=== PATIENT | female | born 1945 | race Caucasian/White ===

== ENCOUNTER 2019-02-25 21:18 | Observation (INO) ==
[2019-02-25] MEDS ORDERED: 0.9 % Sodium Chloride 1,000 ML IVC ONE (21:27)
[2019-02-25] MEDS ORDERED: Ondansetron 4 MG/2 ML VIAL IVP ONE (21:27)
--- NOTE | 2019-02-25 21:31 | Emergency Department Note ---
Disposition Clinical Impression: Small bowel obstruction Disposition: Still a Patient Condition: Fair Time of Disposition: 22:55 General Adult HPI - General Stated complaint: abominal pain vomiting Time Seen by Provider: 02/25/19 21:27 Source: EMS, other Mode of arrival: EMS Limitations: other (Patient is nonverbal history of congenital MRDD) Nursing Notes Reviewed: Yes Vital Signs Reviewed: Yes - History of Present Illness HPI Narrative: Nonverbal group home patient brought in by EMS for "vomiting up black stuff and abdominal distention. Patient was supposed to have a colonoscopy tomorrow morning for reasons that EMS was unsure of patient cannot provide any history whatsoever stamp collector is not here yet. They said her abdomen was getting distended they tried magnesium citrate indicated to her and she vomited up black stuff IC remnants of on her shirt surgically could be coffee-ground emesis. Patient does not appear to be in any physical distress and offers no other evidence of complaints - Related Data Previous Rx's Medication Instructions Recorded Polyethylene Glycol 3350 [MiraLAX] 17 gm PO BID #60 powd.pack 01/26/18 Polyethylene Glycol 3350 [MiraLAX 1 scoop PO DAILY #510 gm 06/29/18 Powder Bulk 17.9 Oz] Bisacodyl [Dulcolax] 10 mg RC DAILY #14 supp.rect 08/17/18 Peg 3350/Na Sulf,Bicarb,Cl/KCl 4,000 ml PO ONCE #1 soln.recon 08/17/18 [Golytely Solution] Allergies Allergy/AdvReac Type Severity Reaction Status Date / Time [place] AdvReac See Verified 08/17/18 16:32 Comments Limitations: ROS unobtainable due to patients medical condition Past Medical History - Past Medical History Source: unable to obtain Medical history: Reports: hyperlipidemia, hypertension Psychiatric history: Reports: anxiety, depression - Social History Smoking Status: Former smoker Smokeless Tobacco Status: No Alcohol use: Reports: none Drug use: Reports: none Physical Exam - General Limitations: other (She is nonverbal MRDD) General appearance: alert - Head Head exam: atraumatic - Eye Eye exam: Present: normal appearance - ENT ENT exam: normal exam, mucous membranes moist - Neck Neck exam: Present: normal inspection, full ROM - Chest Chest inspection: Present: normal inspection - Respiratory Respiratory exam: Present: normal lung sounds bilaterally - Cardiovascular Cardiovascular exam: Present: regular rate, normal rhythm - Abdominal Exam Abdominal exam: Present: soft, Non-Tender, distention. Absent: guarding, rebound - Extremities Exam Extremities exam: Present: normal inspection - Expanded Lower Extremity Exam Neurovascular/Tendon exam: Present: normal capillary refill Gait: not tested/not observed - Back Exam Back exam: Present: normal inspection - Neurological Exam Neurological exam: Present: alert - Skin Skin exam: Present: warm, dry Course - Reevaluation(s) Reevaluation #1: Nonverbal MRDD patient increasing abdominal distention but appears to be coffee- ground emesis by history and evidence on chart certainly concerned about possi bility of ileus or small bowel obstruction. Patient had abdominal pelvic CT IV fluids IV Zofran screening labs. Disposition pending Time: 21:31 Reevaluation #2: Patient resting comfortably. CBC chemistry panel and LFTs within normal limits her baseline. Awaiting results of urinalysis and abdominal pelvic CT scan. Disposition pending Time: 22:15 Reevaluation #3: And out to the overnight ED attending Dr. TYLER Hernandez, she will follow up results of the abdominal pelvic CT and disposition the patient appropriately. And are located. It appears to be mechanical physical obstruction of stool with air fluid levels waiting for official read the guardians and stamp collector to the room have been so informed. Disposition pending Time: 22:54 Vital Signs Temperature 98.1 F 02/25/19 21:27 Pulse Rate 104 02/25/19 21:27 Respiratory Rate 18 02/25/19 21:27 Blood Pressure 122/74 02/25/19 21:27 O2 Sat by Pulse Oximetry 97 02/25/19 21:27 Temperature 98.1 F 02/25/19 21:27 Pulse Rate 105 02/25/19 22:48 Respiratory Rate 18 02/25/19 22:48 Blood Pressure 103/86 02/25/19 22:48 O2 Sat by Pulse Oximetry 98 02/25/19 22:48 Oxygen Delivery Oxygen Delivery Room Air Medical Decision Making - Lab Data Result diagrams: 02/25/19 21:28 02/25/19 21:28 Lab Results 02/25/19 02/25/19 Range/Units 21:28 21:28 WBC 5.6 (4.3-11.1) K/mcL RBC 3.79 L (3.82-4.97) M/mcL Hgb 10.5 L (11.5-15.4) g/dL Hct 33.0 L (35.3-44.9) % MCV 87.1 (83.0-100.0) fL MCH 27.7 L (28.0-33.3) pg MCHC 31.8 (31.6-35.5) g/dL RDW 14.4 (11.5-14.5) % Plt Count 175 (140-400) K/mcL MPV 10.7 (9.4-12.4) fL Immature Gran % 0.4 (0-4) % Seg Neutrophils % 49.0 % Lymphocytes % 37.6 % Monocytes % 11.9 % Eosinophils % 0.9 % Basophils % 0.2 % Neutrophils # 2.7 (1.6-8.9) K/mcL Lymphocytes # 2.1 (0.6-4.6) K/mcL Monocytes # 0.7 (0.0-1.3) K/mcL Eosinophils # 0.1 (0.0-0.6) K/mcL Basophils # 0.0 (0.0-0.2) K/mcL Sodium 141 (136-145) mEq/L Potassium 3.7 (3.5-5.1) mEq/L Chloride 100 (98-107) mEq/L Carbon Dioxide 34 H (23-29) mEq/L BUN 21 (8-23) mg/dL Creatinine 0.61 (0.60-1.20) mg/dL Est GFR ( Amer) > 60 (> 60) Est GFR (Non-Af Amer) > 60 (> 60) BUN/Creatinine Ratio 34 H (6-26) Glucose 112 H (70-105) mg/dL Calculated Osmolality 296 (280-300) Calcium 9.2 (8.6-10.3) mg/dL Total Bilirubin 0.2 L (0.3-1.0) mg/dL Direct Bilirubin 0.1 (0.0-0.2) mg/dL Indirect Bilirubin 0.1 (0.0-1.2) mg/dL AST 28 (13-39) Units/L ALT 22 (7-52) Units/L Alkaline Phosphatase 88 (34-104) Units/L Serum Total Protein 7.2 (6.4-8.9) g/dL Albumin 3.9 (3.5-5.7) g/dL Globulin 3.3 (2.4-3.5) g/dL Albumin/Globulin Ratio 1.2 (1.1-2.2) Amylase 34 (29-103) Units/L Lipase 42 (11-82) Units/L
[2019-02-25 21:53] LABS: Basophils % 0.2 %; Eosinophils # 0.1 K/mcL (0.0-0.6); Eosinophils % 0.9 %; Hemoglobin 10.5 g/dL (11.5-15.4); Immature Granulocytes % 0.4 % (0-4); Lymphocytes # 2.1 K/mcL (0.6-4.6); Lymphocytes % 37.6 %; Mean Corpuscular HGB Conc 31.8 g/dL (31.6-35.5); Mean Corpuscular Hemoglobin 27.7 pg (28.0-33.3); Mean Corpuscular Volume 87.1 fL (83.0-100.0); Mean Platelet Volume 10.7 fL (9.4-12.4); Monocytes # 0.7 K/mcL (0.0-1.3); Monocytes % 11.9 %; Neutrophils # 2.7 K/mcL (1.6-8.9); Platelet Count 175 K/mcL (140-400); Red Blood Count 3.79 M/mcL (3.82-4.97); Red Cell Distribution Width 14.4 % (11.5-14.5); White Blood Count 5.6 K/mcL (4.3-11.1)
[2019-02-25 22:14] LABS: Alanine Aminotransferase 22 Units/L (7-52); Albumin 3.9 g/dL (3.5-5.7); Albumin/Globulin Ratio 1.2 (1.1-2.2); Alkaline Phosphatase 88 Units/L (34-104); Amylase 34 Units/L (29-103); Aspartate Amino Transferase 28 Units/L (13-39); BUN/Creatinine Ratio 34 (6-26); Bilirubin,Direct 0.1 mg/dL (0.0-0.2); Bilirubin,Indirect 0.1 mg/dL (0.0-1.2); Bilirubin,Total 0.2 mg/dL (0.3-1.0); Blood Urea Nitrogen 21 mg/dL (8-23); Calcium 9.2 mg/dL (8.6-10.3); Carbon Dioxide 34 mEq/L (23-29); Chloride 100 mEq/L (98-107); Globulin 3.3 g/dL (2.4-3.5); Glucose 112 mg/dL (70-105); Lipase 42 Units/L (11-82); Osmolality,Calculated 296 (280-300); Potassium 3.7 mEq/L (3.5-5.1); Sodium 141 mEq/L (136-145); Total Protein 7.2 g/dL (6.4-8.9); eGFR For African Americans > 60 (> 60); eGFR For Non-African Americans > 60 (> 60)
[2019-02-25] MEDS ORDERED: Lidocaine -MPF 2% 2 ML VIAL IH ONE (23:53)
--- NOTE | 2019-02-25 23:57 | Emergency Department Note ---
Disposition Clinical Impression: Small bowel obstruction, Fecal impaction, Obstipation Disposition: Still a Patient Condition: Fair Referrals: Edwardo Fowler MD [Primary Care Provider] - Time of Disposition: 23:56 General Adult HPI - General Chief complaint: ED Abdominal Pain Stated complaint: abominal pain vomiting Time Seen by Provider: 02/25/19 21:27 Source: EMS, other Mode of arrival: EMS Limitations: other (She is nonverbal MRDD) - History of Present Illness Pain Scale: 0 - Related Data Previous Rx's Medication Instructions Recorded Polyethylene Glycol 3350 [MiraLAX] 17 gm PO BID #60 powd.pack 01/26/18 Polyethylene Glycol 3350 [MiraLAX 1 scoop PO DAILY #510 gm 06/29/18 Powder Bulk 17.9 Oz] Bisacodyl [Dulcolax] 10 mg RC DAILY #14 supp.rect 08/17/18 Peg 3350/Na Sulf,Bicarb,Cl/KCl 4,000 ml PO ONCE #1 soln.recon 08/17/18 [Golytely Solution] Allergies Allergy/AdvReac Type Severity Reaction Status Date / Time [place] AdvReac See Verified 08/17/18 16:32 Comments Past Medical History - Past Medical History Medical history: Reports: hyperlipidemia, hypertension Psychiatric history: Reports: anxiety, depression, schizophrenia - Social History Smoking Status: Former smoker Smokeless Tobacco Status: No Alcohol use: Reports: none Drug use: Reports: none Physical Exam - General Limitations: other (She is nonverbal MRDD) General appearance: alert Course Vital Signs Temperature 98.1 F 02/25/19 21:27 Pulse Rate 104 02/25/19 21:27 Respiratory Rate 18 02/25/19 21:27 Blood Pressure 122/74 02/25/19 21:27 O2 Sat by Pulse Oximetry 97 02/25/19 21:27 Temperature 98.1 F 02/25/19 21:27 Pulse Rate 105 02/25/19 22:48 Respiratory Rate 18 02/25/19 22:48 Blood Pressure 103/86 02/25/19 22:48 O2 Sat by Pulse Oximetry 98 02/25/19 22:48 Oxygen Delivery Oxygen Delivery Room Air Medical Decision Making - MDM Narrative Medical decision making narrative: Patient was signed out to me, by Dr. Hoyt, follow-up on CT scan CT scan showe d significant obstipation with massive fecal impaction with greater than 20 cm of impacted stool, with dilated loops of bowel proximal to this consistent with a functional obstruction from obstipation and constipation and fecal impaction. I spoke with surgery Dr. Yocasta Rodriges, who recommended NG tube, and soapsuds enema, admit to medicine with consultation from surgery if medical management does not work. Medicine consulted for admission. - Lab Data Result diagrams: 02/25/19 21:28 02/25/19 21:28 Lab Results 02/25/19 02/25/19 Range/Units 21:28 21:28 WBC 5.6 (4.3-11.1) K/mcL RBC 3.79 L (3.82-4.97) M/mcL Hgb 10.5 L (11.5-15.4) g/dL Hct 33.0 L (35.3-44.9) % MCV 87.1 (83.0-100.0) fL MCH 27.7 L (28.0-33.3) pg MCHC 31.8 (31.6-35.5) g/dL RDW 14.4 (11.5-14.5) % Plt Count 175 (140-400) K/mcL MPV 10.7 (9.4-12.4) fL Immature Gran % 0.4 (0-4) % Seg Neutrophils % 49.0 % Lymphocytes % 37.6 % Monocytes % 11.9 % Eosinophils % 0.9 % Basophils % 0.2 % Neutrophils # 2.7 (1.6-8.9) K/mcL Lymphocytes # 2.1 (0.6-4.6) K/mcL Monocytes # 0.7 (0.0-1.3) K/mcL Eosinophils # 0.1 (0.0-0.6) K/mcL Basophils # 0.0 (0.0-0.2) K/mcL Sodium 141 (136-145) mEq/L Potassium 3.7 (3.5-5.1) mEq/L Chloride 100 (98-107) mEq/L Carbon Dioxide 34 H (23-29) mEq/L BUN 21 (8-23) mg/dL Creatinine 0.61 (0.60-1.20) mg/dL Est GFR ( Amer) > 60 (> 60) Est GFR (Non-Af Amer) > 60 (> 60) BUN/Creatinine Ratio 34 H (6-26) Glucose 112 H (70-105) mg/dL Calculated Osmolality 296 (280-300) Calcium 9.2 (8.6-10.3) mg/dL Total Bilirubin 0.2 L (0.3-1.0) mg/dL Direct Bilirubin 0.1 (0.0-0.2) mg/dL Indirect Bilirubin 0.1 (0.0-1.2) mg/dL AST 28 (13-39) Units/L ALT 22 (7-52) Units/L Alkaline Phosphatase 88 (34-104) Units/L Serum Total Protein 7.2 (6.4-8.9) g/dL Albumin 3.9 (3.5-5.7) g/dL Globulin 3.3 (2.4-3.5) g/dL Albumin/Globulin Ratio 1.2 (1.1-2.2) Amylase 34 (29-103) Units/L Lipase 42 (11-82) Units/L
[2019-02-26] MEDS ORDERED: Milk and Molasses Enema 200 ML RC ONE ×2 (02:29→16:00)
[2019-02-26] MEDS ORDERED: Acetaminophen 325 MG TABLET PO PRN (02:31)
[2019-02-26] MEDS ORDERED: Naloxone 0.4 MG/ML INJ IVP PRN (02:31)
[2019-02-26] MEDS ORDERED: Ondansetron 4 MG/2 ML VIAL IVP PRN (02:31)
[2019-02-26] MEDS ORDERED: 0.9 % Sodium Chloride 1,000 ML IVC SCH (02:45)
--- NOTE | 2019-02-26 02:59 | Internal Med History&Physical ---
Date of Encounter: 02/26/19 Time of Encounter: 01:45 Internal Medicine - H&P: HPI Chief complaint: Constipation/N/V Admitted From: Emergency Dept Plans for Post Hospital Care: Transfer Long Term Facility History of present illness: Ms. Santos is a 73 year old female w/PMH of chronic constipation, HLD, HTN, anemia, anxiety, and depression presents from the ED w/CC of abdominal pain, constipation, nausea, and vomiting since yesterday. Pt. is MRDD and non-verbal. Patient is wheelchair bound. Caregivers are present on admission to give hx. Pts. caregiver states that the pt. has not had a bowel movement since yesterday and describes yesterday's as large and soft. Pt. was on bowel prep for a lower GI and had taken mag citrate which made her abdomen hard and distended. Patient then had 2 episodes of vomiting which caregiver describes as brown and slimy. Unsure if it resembled or smelled of stool. Caregiver states that the pts. constipation has been chronic for years and requires enemas every 2nd or 3rd day in addition to Miralax BID, Colace, and other bowel stimulants. Caregiver reports the pt. does not drink fluids and spits them back out. Pt. is also on several psychiatric medications. Caregiver denies recent illness, fever, chills, headache, unusual bleeding, chest pain, shortness of breath, pre-syncope, or syncope. Past Med Surg Social Fam HX - Past Medical History Source: old records reviewed, other (Caregivers) Medical history: hyperlipidemia, hypertension, other (Anemia, chronic constipation) Psychiatric history: anxiety, depression, schizophrenia - Past Surgical History Additional surgical history: Unknown - Social History Smoking Status: Former smoker Smokeless Tobacco Status: No Alcohol use: none Drug use: none Current living situation: [facility] Activity Level: Wheelchair bound Recent Out of Country Travel Within the Last 8 Weeks: No Exposure or Possible Exposure to Illness During Travel: No - Family History Father Race: Living Status: Age at : 72 Cause of : Prostate cancer Hx Family Cancer: Yes (Prostate) Mother Race: Living Status: Age at : 70 Cause of : CVA Hx Family Cardiac Disorders: Yes (CVA) Hx Family Endocrine Disorder: Yes (Cirrhosis) Hx Family Neurologic Disorders: Yes (CVA) Brother Race: Living Status: Age at : 83 Cause of : Cancer (type unknown) Hx Family Cancer: Yes Internal Medicine - H&P: Meds Polyethylene Glycol 3350 [MiraLAX] 17 gm PO BID #60 powd.pack 01/26/18 [Rx] Polyethylene Glycol 3350 [MiraLAX Powder Bulk 17.9 Oz] 1 scoop PO DAILY #510 gm 06/29/18 [Rx] Bisacodyl [Dulcolax] 10 mg RC DAILY #14 supp.rect 08/17/18 [Rx] Peg 3350/Na Sulf,Bicarb,Cl/KCl [Golytely Solution] 4,000 ml PO ONCE #1 soln.recon 08/17/18 [Rx] Atorvastatin 20 mg PO QAM 02/26/19 [History] Benztropine [Cogentin] 1 mg PO BID 02/26/19 [History] CarBAMazepine [Equetro] 200 mg PO HS 02/26/19 [History] Ferrous Sulfate [Iron] 325 mg PO DAILY 02/26/19 [History] Linaclotide [Linzess] 290 mcg PO DAILY 02/26/19 [History] carBAMazepine [Carbamazepine ER] 400 mg PO BID 02/26/19 [History] clonazePAM [Clonazepam] 1 mg PO TID 02/26/19 [History] Allergy/AdvReac Type Severity Reaction Status Date / Time [place] AdvReac See Verified 08/17/18 16:32 Comments ROS unobtainable: due to mental status (Patient is MRDD and non-verbal) All Systems PM: A 10-system review of systems was performed and is negative for pertinent findings except as documented above in the HPI. - Constitutional Vitals: Temp Pulse Resp BP Pulse Ox 98.1 F 105 18 139/76 98 02/25/19 21:27 02/26/19 01:49 02/25/19 22:48 02/26/19 01:49 02/25/19 22:48 General appearance: Present: A&O X 0, no acute distress Exam: Patient examined at bedside in ED. Pt. is MRDD and is non-verbal. Caregivers present to give hx and information regarding current constipation. Caregivers report 2 episodes of brown emesis yesterday but none since. Describe emesis as brown and slimy. Last BM yesterday was large and soft. Chronic hx of cons tipation. Caregiver denies any other symptoms or problems at this time. VS: 98.1F temp, HR 105, RR 18, BP 139/76, SpO2 98% on RA. - Head Head exam: Present: atraumatic, normocephalic - Eye Eye exam: Present: PERRL, conjuntiva pink, sclera anicteric Pupils: Present: PERRL - ENT ENT exam: Present: normal exam - Neck Neck exam general surgery: Present: supple, trachea midline. Absent: lymphadenopathy - Respiratory Respiratory exam: Present: CTAB. Absent: accessory muscle use, rales, rhonchi, wheezes - Cardiovascular Cardiovascular exam: Present: RRR, +S1, +S2. Absent: diastolic murmur, gallop, rubs, systolic murmur - GI/Abdominal GI/Abdominal exam: Present: distended, normal bowel sounds, tenderness - Rectal Rectal exam: Present: deferred - Additional comments: exam deferred. - Extremities Exam Extremities exam: Present: warm, radial pulses palpable and symmetrical. Absent: calf tenderness, cyanotic, pedal edema - Back Exam Back exam: Present: normal inspection - Neurological Exam Neurological exam: Present: altered Additional comments: Patient is MRDD and non-verbal - Psychiatric Psychiatric exam: Present: flat affect - Skin Skin exam: Present: dry, intact Internal Med - H&P Results - Labs CBC & Chem 7: 02/25/19 21:28 02/25/19 21:28 Labs: Short CBC 02/25/19 Range/Units 21:28 WBC 5.6 (4.3-11.1) K/mcL Hgb 10.5 L (11.5-15.4) g/dL Hct 33.0 L (35.3-44.9) % Plt Count 175 (140-400) K/mcL Neutrophils # 2.7 (1.6-8.9) K/mcL BMP 02/25/19 21:28 Sodium 141 Potassium 3.7 Chloride 100 Carbon Dioxide 34 H BUN 21 Creatinine 0.61 Glucose 112 H Calcium 9.2 Liver Function 02/25/19 Range/Units 21:28 Total Bilirubin 0.2 L (0.3-1.0) mg/dL Direct Bilirubin 0.1 (0.0-0.2) mg/dL AST 28 (13-39) Units/L ALT 22 (7-52) Units/L Alkaline Phosphatase 88 (34-104) Units/L Albumin 3.9 (3.5-5.7) g/dL - Impressions ITS Impressions Abdomen/Pelvis CT 02/25/19 21:28 IMPRESSION: 1. Rectosigmoid colon is distended with large amount of stool with impacted appearance. Colon proximal to this is distended with fluid and gas. 2. Fluid in the small bowel but no small bowel obstruction. 1. Moderate hiatal hernia with paraesophageal component. 4. Other incidental findings as above including a right middle lobe nodule of 3 mm. 2. Case discussed with the referring clinician at 2341 hours via telephone. RECOMMENDATIONS: Fleischner Society guidelines for follow-up and management of incidentally detected pulmonary nodules: Single Solid Nodule: Nodule size less than 6 mm In a low-risk patient, no routine follow-up. In a high-risk patient, optional CT at 12 months. - Low risk patients include individuals with minimal or absent history of smoking and other known risk factors. - High risk patients include individuals with a history or smoking or known risk factors. Radiology 2017 http://pubs.rsna.org/doi/full/10.1148/radiol.3881862880 D/ / Marcie Lai MD / Marcie Lai MD Interpreting Provider: Marcie Lai MD - Diagnostic Studies CT scan - abdomen Additional comments: Impressions Abdomen/Pelvis CT 02/25/19 21:28 IMPRESSION: 1. Rectosigmoid colon is distended with large amount of stool with impacted appearance. Colon proximal to this is distended with fluid and gas. 2. Fluid in the small bowel but no small bowel obstruction. 1. Moderate hiatal hernia with paraesophageal component. 4. Other incidental findings as above including a right middle lobe nodule of 3 mm. 2. Case discussed with the referring clinician at 2341 hours via telephone. RECOMMENDATIONS: Fleischner Society guidelines for follow-up and management of incidentally detected pulmonary nodules: Single Solid Nodule: Nodule size less than 6 mm In a low-risk patient, no routine follow-up. In a high-risk patient, optional CT at 12 months. - Low risk patients include individuals with minimal or absent history of smoking and other known risk factors. - High risk patients include individuals with a history or smoking or known risk factors. Radiology 2017 http://pubs.rsna.org/doi/full/10.1148/radiol.3091784492 D/ / Marcie Lai MD / Marcie Lai MD Interpreting Provider: Marcie Lai MD - Assessment and Plan (1) Fecal impaction Current Visit: Yes Status: Acute Assessment and plan: Acute on chronic constipation w/current fecal impaction. CT of the abdomen/pelvis shows rectosigmoid colon is distended with large amount of stool with impacted appearance. Colon proximal to this is distended with fluid and gas. Fluid in the small bowel but no small bowel obstruction. Moderate hiatal hernia with paraesophageal component. Other incidental findings include a right middle lobe nodule of 3 mm. Surgery consulted in ED w/recommendation for soap suds enema. Current fecal impaction measures approximately 20 cm. Pt. received enema in ED and had some liquid stool. Milk and molasses enema ordered. No cur rent N/V and caregivers wish to avoid NG tube d/t pts. intolerance to trauma. Bowel sounds present on exam and periods of flatus. NPO. 0.9 IV fluids. Nutrition consult for dietary recommendations for caregivers. Will continue PO bowel stimulants once fecal impaction is resolving/resolved. Avoid opioids and iron supplements for the present. Pt. is moderate risk for further morbidity and complications d/t current large fecal impaction, hx of chronic constipation d/t poor dietary and fluid intake, hx of chronic anemia, and risk factors. Observation. (2) Nausea & vomiting Current Visit: Yes Status: Acute Assessment and plan: Acute nausea and vomiting episodes x2. Caregiver reports emesis as brown and slimy. Denies any blood in stool or emesis. IVP Zofran 4 mg every 8 hour when necessary for nausea and vomiting. Caregiver reports no further incidence of N/V and wishes to avoid NG tube at this time d/t trauma to the pt. Will re-order if appropriate or necessary. NPO for now. Strict I&O. Qualifiers: Vomiting type: cyclical vomiting Vomiting Intractability: non-intractable Qualified Code(s): G43.A0 - Cyclical vomiting, not intractable (3) Chronic constipation Current Visit: Yes Status: Chronic Assessment and plan: Hx of chronic constipation d/t poor daily fluid intake, poor dietary intake, and medications. Pt. takes bisacodyl and MiraLAX daily. Pt. also requires enemas every 2nd or 3rd day. Nutrition consult ordered to provide dietary education and advice to caregivers. Strict I&O. Will resume PO bowel regimen once fecal impaction is resolved/resolving. (4) Anemia Current Visit: Yes Status: Chronic Assessment and plan: Hx of chronic iron deficiency anemia r/t poor intake. Iron panel in a.m. labs. Hold pts. PO ferrous sulfate until constipation/fecal impaction is resolved. Monitor H/H in f/u labs. Qualifiers: Anemia type: iron deficiency Iron deficiency anemia type: inadequate dietary iron intake Qualified Code(s): D50.8 - Other iron deficiency anemias (5) HLD (hyperlipidemia) Current Visit: Yes Status: Chronic Assessment and plan: Hx of chronic HLD. Lipid panel in a.m. labs. Continue pts. home statin when me dications are reconciled. Qualifiers: Hyperlipidemia type: pure hypercholesterolemia Qualified Code(s): E78.00 - Pure hypercholesterolemia, unspecified; E78.0 - Pure hypercholesterolemia (6) HTN (hypertension) Current Visit: Yes Status: Chronic Assessment and plan: Hx of chronic HTN. Monitor pt. and VS. Continue pts. home HTN medication when reconciled. IVP hydralazine 10 mg Q6HR PRN w/parameters ordered for now. Qualifiers: Hypertension type: essential hypertension Qualified Code(s): I10 - Essential (primary) hypertension (7) Anxiety and depression Current Visit: Yes Status: Chronic Assessment and plan: Hx of chronic anxiety, depression, and schizophrenia. Continue pts. home psy chiatric medications. (8) DVT prophylaxis Current Visit: Yes Status: Acute Assessment and plan: Bilateral SCDs on LEs for DVT prophylaxis d/t drop in Hgb and report of possible coffee ground emesis. - Time Spent With Patient Total time spent is greater than 50% in coordination of care (as documented) at patient's floor/unit and/or counseling patient: Greater than 35 minutes
[2019-02-26 04:38] LABS: Hematocrit 34.6 % (35.3-44.9); Hemoglobin 10.8 g/dL (11.5-15.4); Mean Corpuscular HGB Conc 31.2 g/dL (31.6-35.5); Mean Corpuscular Hemoglobin 26.8 pg (28.0-33.3); Mean Corpuscular Volume 85.9 fL (83.0-100.0); Mean Platelet Volume 10.3 fL (9.4-12.4); Platelet Count 183 K/mcL (140-400); Red Blood Count 4.03 M/mcL (3.82-4.97); Red Cell Distribution Width 14.2 % (11.5-14.5); White Blood Count 7.2 K/mcL (4.3-11.1)
[2019-02-26 04:56] LABS: BUN/Creatinine Ratio 38 (6-26); Blood Urea Nitrogen 21 mg/dL (8-23); Calcium 9.2 mg/dL (8.6-10.3); Carbon Dioxide 32 mEq/L (23-29); Chloride 104 mEq/L (98-107); Chol/HDL Ratio 2.7 (0-4.9); Cholesterol 174 mg/dL (< 200); Glucose 127 mg/dL (70-105); HDL Cholesterol 65 mg/dL (40-59); LDL Cholesterol,Calculated 89 mg/dL (0-99); Magnesium 2.3 mg/dL (1.6-2.6); Osmolality,Calculated 299 (280-300); Potassium 3.5 mEq/L (3.5-5.1); Sodium 142 mEq/L (136-145); Triglycerides 101 mg/dL (< 150); eGFR For African Americans > 60 (> 60); eGFR For Non-African Americans > 60 (> 60)
[2019-02-26 04:57] LABS: % Iron Saturation 20 % (15-50); Iron 53 mcg/dL (50-170); Transferrin 188 mg/dL (203-362)
--- NOTE | 2019-02-26 08:51 | Event Note ---
Date of Encounter: 02/26/19 Time of Encounter: 08:51 Patient was seen and examined by hospitalist services earlier this morning . Guardian and caregiver at bedside-nursing reports the patient did have some liquid stool after MON enema. We will repeat soapsud as well as Dulcolax suppository and monitor. Patient does not have a NG tube placed at this time. Guardian and caregiver are requesting not to place NG. Explained the importance of NG placement including prevention of possible aspiration decompression of stomach and if necessary administration of medications. Guardian and caregiver declining NG placement this time.
[2019-02-26] MEDS ORDERED: Dextrose Gel 15 GM/37.5 ML TUBE PO PRN ×2 (11:57)
[2019-02-26] MEDS ORDERED: *HR* Dextrose 50 % in Water (Syg) 50 ML SYRINGE IVP PRN (11:57)
[2019-02-26] MEDS ORDERED: D5% in Water 1,000 ML IVC PRN (11:57)
[2019-02-26] MEDS: D5% in 0.9% NACL 1,000 ML IVC SCH (12:46)
[2019-02-26] MEDS: Bisacodyl 10 MG RECTAL SUPPOSITORY RC SCH (12:48)
[2019-02-26] MEDS: Milk and Molasses Enema 200 ML RC SCH ×2 (15:50→21:33)
[2019-02-26] MEDS: *HR* LORazepam 2 MG/ML VIAL IVP SCH (18:36)
[2019-02-26 23:46] LABS: Bilirubin,Urine Negative (Negative); Blood,Urine Trace (Negative); Clarity,Urine Cloudy (Clear); Color,Urine Yellow (Yellow); Glucose,Urine (UA) Normal (Normal); Ketones,Urine Negative (Negative); Leukocyte Esterase,Urine Large (Negative); Nitrite,Urine Negative (Negative); PH,Urine 6.5 pH Units (5.0-8.0); Protein,Urine Trace mg/dL (Neg-Trace); Specific Gravity,Urine 1.014 (1.010-1.025); Urobilinogen,Urine Normal (Normal)
[2019-02-26 23:48] LABS: Bacteria,Urine Many per hpf (None-Few); Hyaline Casts,Urine None Seen per lpf (None-Few); Squamous Epithelial Cell,Urine Moderate per lpf (None-Few); WBC,Urine TNTC per hpf (0-3)
[2019-02-27] MEDS: D5% in 0.9% NACL 1,000 ML IVC SCH (02:25)
[2019-02-27 05:21] LABS: Hematocrit 28.9 % (35.3-44.9); Mean Corpuscular HGB Conc 31.5 g/dL (31.6-35.5); Mean Corpuscular Hemoglobin 27.3 pg (28.0-33.3); Mean Corpuscular Volume 86.8 fL (83.0-100.0); Mean Platelet Volume 10.4 fL (9.4-12.4); Platelet Count 164 K/mcL (140-400); Red Blood Count 3.33 M/mcL (3.82-4.97); Red Cell Distribution Width 14.1 % (11.5-14.5); White Blood Count 4.9 K/mcL (4.3-11.1)
[2019-02-27 05:25] LABS: Hemoglobin 9.1 g/dL (11.5-15.4)
[2019-02-27 05:42] LABS: BUN/Creatinine Ratio 29 (6-26); Blood Urea Nitrogen 12 mg/dL (8-23); Calcium 8.5 mg/dL (8.6-10.3); Carbon Dioxide 27 mEq/L (23-29); Chloride 111 mEq/L (98-107); Glucose 128 mg/dL (70-105); Osmolality,Calculated 289 (280-300); Potassium 3.3 mEq/L (3.5-5.1); Sodium 139 mEq/L (136-145); eGFR For African Americans > 60 (> 60); eGFR For Non-African Americans > 60 (> 60)
[2019-02-27] MEDS: *HR* LORazepam 2 MG/ML VIAL IVP SCH (05:55)
[2019-02-27] MEDS ORDERED: Potassium Chloride 40 MEQ, Lidocaine 1% 2 ML in D5% in Water 500 ML IVPB ONE (07:57)
[2019-02-27] MEDS: Bisacodyl 10 MG RECTAL SUPPOSITORY RC SCH (08:21)
[2019-02-27] MEDS: Milk and Molasses Enema 200 ML RC SCH (10:05)
--- NOTE | 2019-02-27 10:49 | Discharge Summary ---
- NOTES TO OUTPATIENT PROVIDER Notes to Outpatient Provider: Follow-up at [facility] for outpatient colonoscopy on 03/04. Enema every other day. Orders not resulted at time of discharge: Pending orders 02/26/19 23:28 Culture,Urine [RM] Stat 02/28/19 04:00 Basic Metabolic Panel AM 0400 Complete Blood Count w/o Diff [HEME] AM 0400 Date of Encounter: 02/27/19 Time of Encounter: 08:30 - Discharge Diagnosis (1) Fecal impaction Priority: Primary Status: Acute (2) Chronic constipation Priority: Secondary Status: Chronic (3) Anemia Priority: Secondary Status: Chronic Qualifiers: Anemia type: iron deficiency Iron deficiency anemia type: inadequate dietary iron intake Qualified Code(s): D50.8 - Other iron deficiency anemias (4) HLD (hyperlipidemia) Priority: Secondary Status: Chronic Qualifiers: Hyperlipidemia type: pure hypercholesterolemia Qualified Code(s): E78.00 - Pure hypercholesterolemia, unspecified; E78.0 - Pure hypercholesterolemia (5) HTN (hypertension) Priority: Secondary Status: Chronic Qualifiers: Hypertension type: essential hypertension Qualified Code(s): I10 - Essen tial (primary) hypertension (6) DVT prophylaxis Priority: Secondary Status: Acute (7) Anxiety and depression Priority: Secondary Status: Chronic (8) Nausea & vomiting Priority: Secondary Status: Acute Qualifiers: Vomiting type: cyclical vomiting Vomiting Intractability: non-intractable Qualified Code(s): G43.A0 - Cyclical vomiting, not intractable Hospital course: Ms. Santos is a 73 year old female with MRDD with WC bound status, HTN, anxiety/depression, chronic constipation, who was admitted for fecal impaction. Required multiple rounds of Dulcolax suppository as well as MOM enema with good stool output. Patient's caregiver reported that she gets an enema every 3 days which may not have been adequate. Pt will be sent home with home health to assist with enema every 1-2 days and daily Dulcolax suppository. Pt already has an existing appointment for outpatient colonoscopy at [facility] on 03/04. Discharge discussed with: patient, nurse - Time Spent with Patient Total time spent providing and/or coordinating discharge services: 28 mins - Discharge Medications Prescriptions: New Bisacodyl [Dulcolax] 10 mg RC DAILY #30 supp.rect Milk and Molasses Enema 200 ml RC Q1-2D #3000 mls Continued Atorvastatin Calcium [Lipitor] 20 mg PO QAM Benztropine [Cogentin] 1 mg PO BID Ferrous Sulfate [Iron] 325 mg PO DAILY Linaclotide [Linzess] 290 mcg PO DAILY carBAMazepine [Carbamazepine ER] 400 mg PO BID clonazePAM [Clonazepam] 1 mg PO TID Mirtazapine [Remeron] 15 mg PO HS Ermias/Poly/Kylie OINT [Triple Antibiotic Ointment] 1 appl TP TID PRN PRN Reason: Wound Healing MOM Conc [MILK OF MAGNESIA conc] 30 ml PO PRN PRN PRN Reason: Constipation Quetiapine Fumarate [Seroquel] 300 mg PO BID Acetaminophen [Extra Strength Non-Aspirin] 500 mg PO Q4H PRN PRN Reason: PAIN/FEVER/HEADACHE Artificial Tears SOLN [Akwa Tears] 1 drop BOTH EYES PRN PRN PRN Reason: Dry Eyes Bismuth Subsalicylate [PEPTO-BISMOL (262mg/15mL) Susp] 262 mg PO Q4H PRN PRN Reason: Indigestion Calcium Carbonate/Vitamin D3 [Oyster Shell Calcium-Vit D Tab] 1 tab PO BID carBAMazepine [Tegretol Xr] 200 mg PO QPM Guaifenesin [Cough Syrup] 200 mg PO Q4H PRN PRN Reason: Cough Multivitamin [Daily Multiple Vitamin] 1 tab PO DAILY Psyllium Husk [Tiffany-Mucil] 15 gm PO PRN PRN PRN Reason: Constipation Home Medications: Atorvastatin Calcium [Lipitor] 20 mg PO QAM 02/26/19 [History] Benztropine [Cogentin] 1 mg PO BID 02/26/19 [History] Ferrous Sulfate [Iron] 325 mg PO DAILY 02/26/19 [History] Linaclotide [Linzess] 290 mcg PO DAILY 02/26/19 [History] MOM Conc [MILK OF MAGNESIA conc] 30 ml PO PRN PRN 02/26/19 [History] Mirtazapine [Remeron] 15 mg PO HS 02/26/19 [History] Ermias/Poly/Kylie OINT [Triple Antibiotic Ointment] 1 appl TP TID PRN 02/26/19 [History] Quetiapine Fumarate [Seroquel] 300 mg PO BID 02/26/19 [History] carBAMazepine [Carbamazepine ER] 400 mg PO BID 02/26/19 [History] clonazePAM [Clonazepam] 1 mg PO TID 02/26/19 [History] Acetaminophen [Extra Strength Non-Aspirin] 500 mg PO Q4H PRN 02/27/19 [History] Artificial Tears SOLN [Akwa Tears] 1 drop BOTH EYES PRN PRN 02/27/19 [History] Bisacodyl [Dulcolax] 10 mg RC DAILY #30 supp.rect 02/27/19 [Rx] Bismuth Subsalicylate [PEPTO-BISMOL (262mg/15mL) Susp] 262 mg PO Q4H PRN 02/27/19 [History] Calcium Carbonate/Vitamin D3 [Oyster Shell Calcium-Vit D Tab] 1 tab PO BID 02/27/19 [History] Guaifenesin [Cough Syrup] 200 mg PO Q4H PRN 02/27/19 [History] Milk and Molasses Enema 200 ml RC Q1-2D #3000 mls 02/27/19 [Rx] Multivitamin [Daily Multiple Vitamin] 1 tab PO DAILY 02/27/19 [History] Psyllium Husk [Tiffany-Mucil] 15 gm PO PRN PRN 02/27/19 [History] carBAMazepine [Tegretol Xr] 200 mg PO QPM 02/27/19 [History] Allergies/Adverse Reactions: Allergy/AdvReac Type Severity Reaction Status Date / Time [place] AdvReac See Verified 02/27/19 08:44 Comments Date of admission: 02/26/19 02:21 Primary care physician: Edwardo Fowler MD Consults: 02/26/19 02:29 Consult to Nutrition [CONS] Routine Comment: Consulting Provider: NUTRITION Reason for Dietary Consult: Diet Education Other:: Patient has hx of chronic constipation. Caregivers need educated on diet 02/26/19 02:34 Consult to Founder [CONS] Routine Reason for SW Consult: Please assess patient for possible home needs for post-discharge planning. - Constitutional Vitals: Temp Pulse Resp BP Pulse Ox 98.1 F 100 15 155/82 97 02/27/19 09:52 02/27/19 09:52 02/27/19 09:52 02/27/19 09:52 02/27/19 09:52 General appearance: Present: A&O X 0, no acute distress Exam: General: Alert, non-verbal. Tardive dyskinesia noted Cardiovascular:Normal S1 & S2, No JVD. Pulse regular. Lungs: clear to auscultation, no wheezes/rales Abdomen:Soft, non-tender, not distended Neurological: does not follow commands reliably for neuro exam but moving all 4 limbs spontaneously - Patient Status Disposition: Home Health Service Condition: Fair Overall status at discharge: patient is progressing back to baseline - Discharge Instructions Instructions: Anxiety (DC), Chronic Hypertension (DC) Follow Up With: Edwardo Fowler MD [Primary Care Provider] - Forms: ED Satisfaction Letter, Work/School Release Additional Instructions: Follow up at [facility] for outpatient colonoscopy on 03/04. - Diet and Activity Activity: as per physical therapy Diet: advance to your usual diet
--- NOTE | 2019-02-27 10:56 | Physician Discharge Referral ---
Home Health/Hosp Referral Info Transfer to: Home Health Provider in Charge Post Discharge: PCP - Diagnosis (1) Fecal impaction Priority: Primary Status: Acute (2) Chronic constipation Priority: Secondary Status: Chronic (3) Anemia Priority: Secondary Status: Chronic (4) HLD (hyperlipidemia) Priority: Secondary Status: Chronic (5) HTN (hypertension) Priority: Secondary Status: Chronic (6) DVT prophylaxis Priority: Secondary Status: Acute (7) Anxiety and depression Priority: Secondary Status: Chronic (8) Nausea & vomiting Priority: Secondary Status: Acute - Respiratory Orders Smoking Cessation: Smoking cessation has been advised. For more information, call the [place] Tobacco Quit Line at 7-553-FAIH-NOW. - Services Needed Following services are medically necessary services: Nursing (Enema every 1-2 days. Daily dulcolax suppository) - Transfer Medications Prescriptions: Bisacodyl [Dulcolax] 10 mg RC DAILY #30 supp.rect Milk and Molasses Enema 200 ml RC Q1-2D #3000 mls Home Medications: Atorvastatin Calcium [Lipitor] 20 mg PO QAM 02/26/19 [History] Benztropine [Cogentin] 1 mg PO BID 02/26/19 [History] Ferrous Sulfate [Iron] 325 mg PO DAILY 02/26/19 [History] Linaclotide [Linzess] 290 mcg PO DAILY 02/26/19 [History] MOM Conc [MILK OF MAGNESIA conc] 30 ml PO PRN PRN 02/26/19 [History] Mirtazapine [Remeron] 15 mg PO HS 02/26/19 [History] Ermias/Poly/Kylie OINT [Triple Antibiotic Ointment] 1 appl TP TID PRN 02/26/19 [History] Quetiapine Fumarate [Seroquel] 300 mg PO BID 02/26/19 [History] carBAMazepine [Carbamazepine ER] 400 mg PO BID 02/26/19 [History] clonazePAM [Clonazepam] 1 mg PO TID 02/26/19 [History] Acetaminophen [Extra Strength Non-Aspirin] 500 mg PO Q4H PRN 02/27/19 [History] Artificial Tears SOLN [Akwa Tears] 1 drop BOTH EYES PRN PRN 02/27/19 [History] Bisacodyl [Dulcolax] 10 mg RC DAILY #30 supp.rect 02/27/19 [Rx] Bismuth Subsalicylate [PEPTO-BISMOL (262mg/15mL) Susp] 262 mg PO Q4H PRN 02/27/19 [History] Calcium Carbonate/Vitamin D3 [Oyster Shell Calcium-Vit D Tab] 1 tab PO BID 02/27/19 [History] Guaifenesin [Cough Syrup] 200 mg PO Q4H PRN 02/27/19 [History] Milk and Molasses Enema 200 ml RC Q1-2D #3000 mls 02/27/19 [Rx] Multivitamin [Daily Multiple Vitamin] 1 tab PO DAILY 02/27/19 [History] Psyllium Husk [Tiffany-Mucil] 15 gm PO PRN PRN 02/27/19 [History] carBAMazepine [Tegretol Xr] 200 mg PO QPM 02/27/19 [History] Allergies/Adverse Reactions: Allergy/AdvReac Type Severity Reaction Status Date / Time [place] AdvReac See Verified 02/27/19 08:44 Comments Certification: Further, I certify that my clinical findings support that this patient is homebound (i.e. absences from home require considerable and taxing effort and are for medical reasons or uatsdin services or infrequently or short duration when for other reasons) because: Homebound Reason: Patient requires assistance of a person or device to safely leave home Attestation: My signature below is to certify that this patient is under my care and that I, or nurse practitioner, or a physician's speech and language assistant working with me, has a [id number] encounter with this patient.
[2019-02-27] MEDS ORDERED: GuaiFENesin Liq 200 MG/10 ML UDC PO PRN (12:53)
[2019-02-27] MEDS ORDERED: Psyllium 1 PACKET POWD.PACK PO PRN (12:53)
[2019-02-27] MEDS ORDERED: Artificial Tears SOLN 15 ML BOTTLE BOTH EYES PRN (12:53)
[2019-02-27] MEDS ORDERED: Bismuth Subsalicylate 120 ML ORAL SUSPENSION PO PRN (12:53)
[2019-02-27] MEDS ORDERED: CarBAMazepine XR (12 hr) 100 MG TAB PO SCH ×2 (13:15→18:00)
[2019-02-27] MEDS ORDERED: *HR* Labetalol 20 MG/4 ML SYRINGE IVP ONE (14:23)
[2019-02-27] MEDS ORDERED: clonazePAM 1 MG TABLET PO SCH (15:00)
[2019-02-27 15:32] VITALS: BP 168/75
[2019-02-27] MEDS ORDERED: Mirtazapine 15 MG TABLET PO SCH (21:00)
--- NOTE | 2019-02-28 11:43 | Electrocardiograph Report ---
[address] [address] Test Date: 2019-02-25 Pat Name: Pia Santos Department: [id number] Room: 3A16 Gender: F Assistant Distribution Manager: : [id number] Requested By: Lorenzo Harvey Order Number: [id number] Reading MD: Jitendra Guadarrama Measurements Intervals [place] Rate: 101 P: 72 [place]: 146 QRS: 19 QRSD: 78 T: 102 QT: 402 QTc: 522 Interpretive Statements Sinus tachycardia Low voltage, extremity leads Electronically Signed On 02-28-2019 11:41:43 EDT by Jitendra Guadarrama
== END 2019-02-27 15:46 | disposition home health service (06) ==
LOC: 3ANU 21:18 → EMEROOARM 21:18 → SUATTDRO 02-26 02:21 → 3ANU 02-26 02:40
PROVIDERS: ADMIT Family Medicine; ATTEND Internal Medicine

== ENCOUNTER 2019-02-28 07:17 | Inpatient (IN) ==
[2019-02-28] MEDS ORDERED: 0.9 % Sodium Chloride 500 ML IVC ONE ×2 (07:55→23:46)
[2019-02-28] MEDS ORDERED: *HR* FentaNYL (PF) 100 MCG/2 ML VIAL IVP ONE (07:55)
[2019-02-28] MEDS ORDERED: Acetaminophen 650 MG RECTAL SUPP RC ONE (08:16)
--- NOTE | 2019-02-28 08:20 | Emergency Department Note ---
Disposition Clinical Impression: Acute cystitis Qualifiers: Hematuria presence: without hematuria Qualified Code(s): N30.00 - Acute cystitis without hematuria Sepsis Qualifiers: Sepsis type: sepsis due to unspecified organism Qualified Code(s): A41.9 - Sepsis, unspecified organism Disposition: Admitted As Inpatient Condition: Fair Time of Disposition: 10:43 General Adult HPI - General Chief complaint: ED Nausea/Vomiting/Diarrhea Stated complaint: Fever V/D Time Seen by Provider: 02/28/19 07:32 Source: patient Mode of arrival: ambulatory Limitations: no limitations Nursing Notes Reviewed: Yes Vital Signs Reviewed: Yes - History of Present Illness HPI Narrative: 73-year-old female history of MRDD difficult to get further history from patient but does live in a nursing facility does take care of her present to the emergency department with diarrhea and vomiting as well as a fever. They said the fever was 102.0. She actually was discharged from the hospital yesterday after being admitted for a bowel obstruction secondary to fecal impaction. It was unknown if patient actually did have a large bowel movement but underwent many enemas. When reviewing her chart does look that she did have urinary tract infection but may have been missed as she never did receive any antibiotics. Patient did go home again staff and patient do not know she had a large bowel movements difficult to find on charting. They said that since being home she is only had watery stools there is never been a solid stool. Last was at 4:00. The at late last night she did have a fever of 102 actually did receive Tylenol. Dose being at 2 AM. They said they feel her abdomen is still distended and harder than normal. Otherwise there are no other complaints at this time. Patient is full code according to senior care staff. Pain Scale: 0 - Related Data Home Medications Medication Instructions Recorded Confirmed Atorvastatin Calcium [Lipitor] 20 mg PO QAM 02/26/19 02/28/19 Benztropine [Cogentin] 1 mg PO BID 02/26/19 02/28/19 Ferrous Sulfate [Iron] 325 mg PO DAILY 02/26/19 02/28/19 Linaclotide [Linzess] 290 mcg PO DAILY 02/26/19 02/28/19 MOM Conc [MILK OF MAGNESIA conc] 30 ml PO PRN PRN 02/26/19 02/28/19 Mirtazapine [Remeron] 15 mg PO HS 02/26/19 02/28/19 Ermias/Poly/Kylie OINT [Triple 1 appl TP TID PRN 02/26/19 02/28/19 Antibiotic Ointment] Quetiapine Fumarate [Seroquel] 300 mg PO BID 02/26/19 02/28/19 clonazePAM [Clonazepam] 1 mg PO TID 02/26/19 02/28/19 Acetaminophen [Extra Strength 500 mg PO Q4H PRN 02/27/19 02/28/19 Non-Aspirin] Artificial Tears SOLN [Akwa Tears] 1 drop BOTH EYES PRN PRN 02/27/19 02/28/19 Bismuth Subsalicylate 262 mg PO Q4H PRN 02/27/19 02/28/19 [PEPTO-BISMOL (262mg/15mL) Susp] Calcium Carbonate/Vitamin D3 1 tab PO BID 02/27/19 02/28/19 [Oyster Shell Calcium-Vit D Tab] Guaifenesin [Cough Syrup] 200 mg PO Q4H PRN 02/27/19 02/28/19 Multivitamin [Daily Multiple 1 tab PO DAILY 02/27/19 02/28/19 Vitamin] Psyllium Husk [Tiffany-Mucil] 15 gm PO PRN PRN 02/27/19 02/28/19 Magnesium Citrate [Citroma] 150 ml PO QWEEK PRN 02/28/19 02/28/19 carBAMazepine [Carbamazepine ER] 400 mg PO QA 02/28/19 02/28/19 carBAMazepine [Carbamazepine ER] 600 mg PO HS 02/28/19 02/28/19 Allergies Allergy/AdvReac Type Severity Reaction Status Date / Time [place] AdvReac See Verified 02/27/19 08:44 Comments All systems ED: reviewed and negative except as stated. Review of Systems: As Per HPI Past Medical History - Past Medical History Attestation: Yes The following information was validated with the patient. Source: patient Medical history: Reports: hyperlipidemia, hypertension, other Psychiatric history: Reports: anxiety, depression, schizophrenia - Social History Smoking Status: Former smoker Smokeless Tobacco Status: No Alcohol use: Reports: none Drug use: Reports: none Physical Exam - General Limitations: altered mental status (Secondary to MRDD) General appearance: alert, in no apparent distress - Head Head exam: atraumatic, normocephalic, normal inspection - Eye Eye exam: Present: normal appearance, PERRL, EOMI - ENT ENT exam: normal exam, normal oropharynx, mucous membranes moist - Neck Neck exam: Present: normal inspection, full ROM, trachea midline - Chest Chest inspection: Present: normal inspection, symmetric chest wall rise - Respiratory Respiratory exam: Present: normal lung sounds bilaterally - Cardiovascular Cardiovascular exam: Present: regular rate, normal rhythm, normal heart sounds - Abdominal Exam Abdominal exam: Present: soft, tenderness, distention, normal bowel sounds. Absent: guarding, rebound, rigidity Abdominal tenderness: Present: diffuse, mild - Extremities Exam Extremities exam: Present: normal inspection, full ROM. Absent: tenderness, pedal edema - Back Exam Back exam: Present: normal inspection, full ROM. Absent: tenderness, CVA tenderness (R), CVA tenderness (L) - Neurological Exam Neurological exam: Present: alert. Absent: motor sensory deficit - Skin Skin exam: Present: warm, dry, intact, normal color Course Course Narrative: Patient does meet Sirs criteria. She is not in severe sepsis or septic shock at this time. Due to patient's unknown fluid status I will get start with a 500 mL bolus of IV fluids. We will give her rectal Tylenol. We will not give patient full 30 mL/kg bolus as I do not want to fluid overload the patient. We will get blood cultures, CBC BMP lactate, urinalysis via straight catheter, CT abdomen and pelvis without contrast to see if patient still has an impaction. We will give patient fentanyl for pain control. Disposition most likely will be admission for further evaluation at this time. We will also get 2 large-bore IVs in case patient's blood pressure does not respond well. Vital Signs Temperature 98.4 F 02/28/19 07:27 Pulse Rate 117 02/28/19 07:27 Respiratory Rate 18 02/28/19 07:27 Blood Pressure 101/74 02/28/19 07:27 O2 Sat by Pulse Oximetry 97 02/28/19 07:27 Temperature 101 F H 02/28/19 08:15 Pulse Rate 116 02/28/19 10:25 Respiratory Rate 20 02/28/19 10:25 Blood Pressure 123/98 02/28/19 10:25 O2 Sat by Pulse Oximetry 99 02/28/19 10:25 Oxygen Delivery Oxygen Delivery Room Air Medical Decision Making - MDM Narrative Medical decision making narrative: 73-year-old male presented to the emergency department with a fever and nausea vomiting diarrhea. Patient's CT did show less stool involvement of the sigmoid colon. She does not look no longer have an obstruction. Patient will need wa ter enemas while on the floor. Patient did show a urinary tract infection that may have been missed on her previous admission so we will treat patient with ceftriaxone as the culture from a previous one has not resulted yet. Patient did have mildly low blood pressure when she first arrived. She did respond well to IV fluids. With now having normal blood pressures. She received 1.5 L of IV fluids. I did not want to give patient any more fluid she does have history of getting fluid overload. Patient did meet Sirs criteria was not in severe sepsis or some septic shock. Patient is a full code. Spoke with Dr. Atkinson who agreed to admit the patient to the hospitalist service. Patient admitted in stable condition. Abdomen/Pelvis CT 02/28/19 07:39 IMPRESSION: 1. Interval decrease in extent and severity of fluid-filled small bowel loops. No evidence for bowel obstruction. 2. Large amount of recto sigmoid and descending colon stool on prior has been evacuated. 3. Redemonstration of 3 mm posterior basal right lower lobe nodule. Follow-up recommendations as stated on the prior exam and below. RECOMMENDATIONS: Fleischner Society guidelines for follow-up and management of incidentally detected pulmonary nodules: Single Solid Nodule: Nodule size less than 6 mm In a low-risk patient, no routine follow-up. In a high-risk patient, optional CT at 12 months. -Low risk patients include individuals with minimal or absent history of smoking and other known risk factors. - High risk patients include individuals with a history or smoking or known risk factors. Radiology 2017 http://pubs.rsna.org/doi/full/10.1148/radiol.9772296677 D/ / Kingsley Egan MD / Kingsley Egan MD Interpreting Provider: Kingsley Egan MD Chest X-Ray 02/28/19 07:40 IMPRESSION: No significant interval change since previous examination. Findings may represent mild pulmonary venous congestion. Correlation with volume status is recommended. D/ / Brandon Fleming MD / Brandon Fleming MD Interpreting Provider: Brandon Fleming MD - Medical Records Medical records reviewed: Yes I reviewed the patient's medical records. - Lab Data Lab results reviewed: Yes I reviewed the patient's lab results. Result diagrams: 02/28/19 08:05 02/28/19 08:05 Lab Results 02/28/19 02/28/19 02/28/19 Range/Units 08:05 08:05 08:05 WBC 6.0 (4.3-11.1) K/mcL RBC 3.61 L (3.82-4.97) M/mcL Hgb 10.2 L (11.5-15.4) g/dL Hct 31.6 L (35.3-44.9) % MCV 87.5 (83.0-100.0) fL MCH 28.3 (28.0-33.3) pg MCHC 32.3 (31.6-35.5) g/dL RDW 14.2 (11.5-14.5) % Plt Count 180 (140-400) K/mcL MPV 11.4 (9.4-12.4) fL Immature Gran % 0.5 (0-4) % Seg Neutrophils % 73.5 % Lymphocytes % 14.6 % Monocytes % 11.2 % Eosinophils % 0.0 % Basophils % 0.2 % Neutrophils # 4.4 (1.6-8.9) K/mcL Lymphocytes # 0.9 (0.6-4.6) K/mcL Monocytes # 0.7 (0.0-1.3) K/mcL Eosinophils # 0.0 (0.0-0.6) K/mcL Basophils # 0.0 (0.0-0.2) K/mcL PT 12.6 H (9.4-12.1) Seconds INR 1.1 Sodium 145 (136-145) mEq/L Potassium 3.7 (3.5-5.1) mEq/L Chloride 102 (98-107) mEq/L Carbon Dioxide 31 H (23-29) mEq/L BUN 14 (8-23) mg/dL Creatinine 0.64 (0.60-1.20) mg/dL Est GFR ( Amer) > 60 (> 60) Est GFR (Non-Af Amer) > 60 (> 60) BUN/Creatinine Ratio 22 (6-26) Glucose 157 H (70-105) mg/dL Calculated Osmolality 304 H (280-300) Lactic Acid (0.5-2.2) mmol/L Calcium 9.3 (8.6-10.3) mg/dL Total Bilirubin 0.4 (0.3-1.0) mg/dL Direct Bilirubin 0.1 (0.0-0.2) mg/dL Indirect Bilirubin 0.3 (0.0-1.2) mg/dL AST 44 H (13-39) Units/L ALT 28 (7-52) Units/L Alkaline Phosphatase 85 (34-104) Units/L Troponin I < 0.03 (< 0.04) ng/mL Serum Total Protein 7.1 (6.4-8.9) g/dL Albumin 3.8 (3.5-5.7) g/dL Globulin 3.3 (2.4-3.5) g/dL Albumin/Globulin Ratio 1.2 (1.1-2.2) Urine Color (Yellow) Urine Clarity (Clear) Urine pH (5.0-8.0) pH Units Ur Specific [place] (1.010-1.025) Urine Protein (Neg-Trace) mg/dL Urine Glucose (UA) (Normal) mg/dL Urine Ketones (Negative) mg/dL Urine Blood (Negative) Urine Nitrite (Negative) Urine Bilirubin (Negative) Urine Urobilinogen (Normal) mg/dL Ur Leukocyte Esterase (Negative) Urine Microscopic RBC (0-3) per hpf Urine Microscopic WBC (0-3) per hpf Ur Squamous Epith Cells (None-Few) per lpf Urine Bacteria (None-Few) per hpf Hyaline Casts (None-Few) per lpf Ur Culture Indicated? (NO) Blood Type Antibody Screen Antibody Identification 02/28/19 02/28/19 02/28/19 Range/Units 08:05 08:11 08:30 WBC (4.3-11.1) K/mcL RBC (3.82-4.97) M/mcL Hgb (11.5-15.4) g/dL Hct (35.3-44.9) % MCV (83.0-100.0) fL MCH (28.0-33.3) pg MCHC (31.6-35.5) g/dL RDW (11.5-14.5) % Plt Count (140-400) K/mcL MPV (9.4-12.4) fL Immature Gran % (0-4) % Seg Neutrophils % % Lymphocytes % % Monocytes % % Eosinophils % % Basophils % % Neutrophils # (1.6-8.9) K/mcL Lymphocytes # (0.6-4.6) K/mcL Monocytes # (0.0-1.3) K/mcL Eosinophils # (0.0-0.6) K/mcL Basophils # (0.0-0.2) K/mcL PT (9.4-12.1) Seconds INR Sodium (136-145) mEq/L Potassium (3.5-5.1) mEq/L Chloride (98-107) mEq/L Carbon Dioxide (23-29) mEq/L BUN (8-23) mg/dL Creatinine (0.60-1.20) mg/dL Est GFR ( Amer) (> 60) Est GFR (Non-Af Amer) (> 60) BUN/Creatinine Ratio (6-26) Glucose (70-105) mg/dL Calculated Osmolality (280-300) Lactic Acid 1.9 (0.5-2.2) mmol/L Calcium (8.6-10.3) mg/dL Total Bilirubin (0.3-1.0) mg/dL Direct Bilirubin (0.0-0.2) mg/dL Indirect Bilirubin (0.0-1.2) mg/dL AST (13-39) Units/L ALT (7-52) Units/L Alkaline Phosphatase (34-104) Units/L Troponin I (< 0.04) ng/mL Serum Total Protein (6.4-8.9) g/dL Albumin (3.5-5.7) g/dL Globulin (2.4-3.5) g/dL Albumin/Globulin Ratio (1.1-2.2) Urine Color Yellow (Yellow) Urine Clarity Turbid A (Clear) Urine pH 7.0 (5.0-8.0) pH Units Ur Specific [place] 1.022 (1.010-1.025) Urine Protein >=300 H (Neg-Trace) mg/dL Urine Glucose (UA) Normal (Normal) mg/dL Urine Ketones Trace H (Negative) mg/dL Urine Blood Negative (Negative) Urine Nitrite Negative (Negative) Urine Bilirubin Negative (Negative) Urine Urobilinogen Normal (Normal) mg/dL Ur Leukocyte Esterase Moderate H (Negative) Urine Microscopic RBC 5-15 H (0-3) per hpf Urine Microscopic WBC TNTC H (0-3) per hpf Ur Squamous Epith Cells Many H (None-Few) per lpf Urine Bacteria Many H (None-Few) per hpf Hyaline Casts None Seen (None-Few) per lpf Ur Culture Indicated? YES A (NO) Blood Type O NEGATIVE Antibody Screen POSITIVE Antibody Identification Anti-E - Radiology Data Radiology results reviewed: Yes I reviewed the patient's radiology results. - EKG Data EKG #1 EKG attestation: Yes I reviewed and interpreted this EKG. EKG results narrative: EKG done at 0 a 14 review myself and attending shows sinus tachycardia rate of 103, VT interval 135, QRS 86, QTC 447. There is no acute ST changes no acute T- wave changes no other signs of ischemia. No signs of hypertrophy, heart strain, heart block. No WPW/Brugada/HOCM. Unchanged based on old EKG done 06/29/18 Attestation Statement - Attestation Attestation: Resident Attestation: I examined this patient and my medical decision making was reviewed with the Resident Physician. I agree with the documented findings, disposition and treatment plan as described except to the extent set forth be low. We independently had [id number] contact with the patient.EKG reviewed with resident physician. Agree with documentation. Patient presenting for evaluation of fever as well as nausea and vomiting. Patient was recently admitted to the hospital and concern for constipation. Documented bowel movement and discharge. Patient did have a urinalysis at this time which did show significant urinary tract infection. Culture is not resulted. Patient now has a fever. Patient's symptoms likely related to UTI. Further investigation and treatment will be provided. The patient herself has not abdomen is soft nontender to palpation without guarding or rebound. Sepsis Event Note - Evaluation Current Stage of Suspected Sepsis: sepsis Possible Source of Sepsis: genitourinary - Focused Exam Date of Encounter: 02/28/19 Time of Encounter: 10:41 Vital Signs: Vital Signs Temp Pulse Resp BP Pulse Ox 02/28/19 10:30 115 131/84 02/28/19 10:25 116 20 123/98 99 02/28/19 09:46 108 112/81 98 02/28/19 09:02 101 18 99/64 94 02/28/19 08:31 114 22 147/104 96 02/28/19 08:15 101 F H 02/28/19 07:27 98.4 F 117 18 101/74 97 Respiratory Exam: Present: CTA bilaterally Cardiovascular Exam: Present: tachycardia. Absent: murmur, rubs, gallop Capillary Refill: < 2 seconds Peripheral Pulse Strength: 3+ normal Peripheral Pulse Location: Radial Skin Exam: normal turgor - Bedside Monitoring Bedside Ultrasound Performed: No Passive Leg raise/fluid bolus: not performed
[2019-02-28 08:33] LABS: Basophils % 0.2 %; Hematocrit 31.6 % (35.3-44.9); Hemoglobin 10.2 g/dL (11.5-15.4); Immature Granulocytes % 0.5 % (0-4); Lymphocytes # 0.9 K/mcL (0.6-4.6); Lymphocytes % 14.6 %; Mean Corpuscular HGB Conc 32.3 g/dL (31.6-35.5); Mean Corpuscular Hemoglobin 28.3 pg (28.0-33.3); Mean Corpuscular Volume 87.5 fL (83.0-100.0); Mean Platelet Volume 11.4 fL (9.4-12.4); Monocytes # 0.7 K/mcL (0.0-1.3); Monocytes % 11.2 %; Neutrophils # 4.4 K/mcL (1.6-8.9); Platelet Count 180 K/mcL (140-400); Red Blood Count 3.61 M/mcL (3.82-4.97); Red Cell Distribution Width 14.2 % (11.5-14.5); Segmented Neutrophils % 73.5 %
[2019-02-28 08:44] LABS: INR 1.1; Prothrombin Time 12.6 Seconds (9.4-12.1)
[2019-02-28 08:47] LABS: Bilirubin,Urine Negative (Negative); Blood,Urine Negative (Negative); Clarity,Urine Turbid (Clear); Color,Urine Yellow (Yellow); Glucose,Urine (UA) Normal (Normal); Ketones,Urine Trace mg/dL (Negative); Leukocyte Esterase,Urine Moderate (Negative); Nitrite,Urine Negative (Negative); Protein,Urine >=300 mg/dL (Neg-Trace); Specific Gravity,Urine 1.022 (1.010-1.025); Urobilinogen,Urine Normal (Normal)
[2019-02-28 08:49] LABS: Hyaline Casts,Urine None Seen per lpf (None-Few); Squamous Epithelial Cell,Urine Many per lpf (None-Few); WBC,Urine TNTC per hpf (0-3)
[2019-02-28] MEDS ORDERED: 0.9 % Sodium Chloride 1,000 ML IVC ONE (08:50)
[2019-02-28 08:52] LABS: Alanine Aminotransferase 28 Units/L (7-52); Albumin 3.8 g/dL (3.5-5.7); Albumin/Globulin Ratio 1.2 (1.1-2.2); Alkaline Phosphatase 85 Units/L (34-104); Aspartate Amino Transferase 44 Units/L (13-39); BUN/Creatinine Ratio 22 (6-26); Bilirubin,Direct 0.1 mg/dL (0.0-0.2); Bilirubin,Indirect 0.3 mg/dL (0.0-1.2); Bilirubin,Total 0.4 mg/dL (0.3-1.0); Blood Urea Nitrogen 14 mg/dL (8-23); Calcium 9.3 mg/dL (8.6-10.3); Carbon Dioxide 31 mEq/L (23-29); Chloride 102 mEq/L (98-107); Globulin 3.3 g/dL (2.4-3.5); Glucose 157 mg/dL (70-105); Osmolality,Calculated 304 (280-300); Potassium 3.7 mEq/L (3.5-5.1); Sodium 145 mEq/L (136-145); Total Protein 7.1 g/dL (6.4-8.9); Troponin I < 0.03 ng/mL (< 0.04); eGFR For African Americans > 60 (> 60); eGFR For Non-African Americans > 60 (> 60)
[2019-02-28 09:01] LABS: Bacteria,Urine Many per hpf (None-Few)
[2019-02-28] MEDS ORDERED: cefTRIAXone 1,000 MG in Water for inj. (sterile) 20 ML 10 ML IVP ONE (09:11)
[2019-02-28] MEDS ORDERED: Psyllium 1 PACKET POWD.PACK PO PRN (12:47)
[2019-02-28] MEDS ORDERED: MOM Conc 10 ML UD.LIQ PO PRN (12:47)
[2019-02-28] MEDS ORDERED: Neosporin OINT 15 GM TUBE TP PRN (12:47)
[2019-02-28] MEDS ORDERED: GuaiFENesin Liq 200 MG/10 ML UDC PO PRN (12:47)
--- NOTE | 2019-02-28 15:53 | Internal Med History&Physical ---
Date of Encounter: 02/28/19 Time of Encounter: 15:53 Internal Medicine - H&P: HPI Chief complaint: fever History of present illness: 73-year-old female history of MRDD who presented to the ER with fever. Reviewing the patient's record indicated that she was just discharged from the hospital after she was treated for bowel obstruction secondary to fecal impaction. As per ER record the patient have urinary tract infection that was not treated during her past admission. The patient was evaluated by the ER staff and urine analysis. UA tract infection. The patient was started on empiric antibiotic with ceftriaxone and was admitted for further evaluation and management. The patient has a guardian that we contacted to confirm her CODE STATUS and for now patient is full code as that her guardian. However he stated that he might change record open on arrival to the hospital,. He is expected to come after he finished daily job at 7:30. Past Med Surg Social Fam HX - Past Medical History Medical history: hyperlipidemia, hypertension, other Psychiatric history: anxiety, depression, schizophrenia - Past Surgical History Additional surgical history: Unknown - Social History Smoking Status: Former smoker Smokeless Tobacco Status: No Alcohol use: none Drug use: none - Family History Father Living Status: Hx Family Cancer: Yes (Prostate) Mother Living Status: Hx Family Cardiac Disorders: Yes (CVA) Hx Family Endocrine Disorder: Yes (Cirrhosis) Hx Family Neurologic Disorders: Yes (CVA) Brother Living Status: Hx Family Cancer: Yes Internal Medicine - H&P: Meds Atorvastatin Calcium [Lipitor] 20 mg PO QAM 02/26/19 [History] Benztropine [Cogentin] 1 mg PO BID 02/26/19 [History] Ferrous Sulfate [Iron] 325 mg PO DAILY 02/26/19 [History] Linaclotide [Linzess] 290 mcg PO DAILY 02/26/19 [History] MOM Conc [MILK OF MAGNESIA conc] 30 ml PO PRN PRN 02/26/19 [History] Mirtazapine [Remeron] 15 mg PO HS 02/26/19 [History] Ermias/Poly/Kylie OINT [Triple Antibiotic Ointment] 1 appl TP TID PRN 02/26/19 [History] Quetiapine Fumarate [Seroquel] 300 mg PO BID 02/26/19 [History] clonazePAM [Clonazepam] 1 mg PO TID 02/26/19 [History] Acetaminophen [Extra Strength Non-Aspirin] 500 mg PO Q4H PRN 02/27/19 [History] Artificial Tears SOLN [Akwa Tears] 1 drop BOTH EYES PRN PRN 02/27/19 [History] Bismuth Subsalicylate [PEPTO-BISMOL (262mg/15mL) Susp] 262 mg PO Q4H PRN 02/27/19 [History] Calcium Carbonate/Vitamin D3 [Oyster Shell Calcium-Vit D Tab] 1 tab PO BID 02/27/19 [History] Guaifenesin [Cough Syrup] 200 mg PO Q4H PRN 02/27/19 [History] Multivitamin [Daily Multiple Vitamin] 1 tab PO DAILY 02/27/19 [History] Psyllium Husk [Tiffany-Mucil] 15 gm PO PRN PRN 02/27/19 [History] Magnesium Citrate [Citroma] 150 ml PO QWEEK PRN 02/28/19 [History] carBAMazepine [Carbamazepine ER] 200 mg PO HS 02/28/19 [History] carBAMazepine [Tegretol Xr] 400 mg PO BID 03/02/19 [History] Allergy/AdvReac Type Severity Reaction Status Date / Time [place] AdvReac See Verified 02/27/19 08:44 Comments ROS unobtainable: due to mental status - Constitutional Vitals: Temp Pulse Resp BP Pulse Ox 99.8 F H 104 18 163/83 95 02/28/19 11:55 02/28/19 11:55 02/28/19 11:55 02/28/19 11:55 02/28/19 11:55 General appearance: Present: A&O X 3 Exam: . - Head Head exam: Present: atraumatic, normocephalic - Neck Neck exam general surgery: Present: supple, trachea midline. Absent: ly mphadenopathy - Respiratory Respiratory exam: Present: CTAB. Absent: accessory muscle use, rales, rhonchi, wheezes - Cardiovascular Cardiovascular exam: Present: RRR, +S1, +S2. Absent: diastolic murmur, gallop, rubs, systolic murmur - GI/Abdominal GI/Abdominal exam: Present: normal bowel sounds, soft, no peritoneal signs. Absent: distended, tenderness - Extremities Exam Extremities exam: Present: warm, radial pulses palpable and symmetrical. Absent: calf tenderness, cyanotic, pedal edema Internal Med - H&P Results - Labs CBC & Chem 7: 03/02/19 02:12 03/02/19 02:12 Labs: Short CBC 02/28/19 Range/Units 08:05 WBC 6.0 (4.3-11.1) K/mcL Hgb 10.2 L (11.5-15.4) g/dL Hct 31.6 L (35.3-44.9) % Plt Count 180 (140-400) K/mcL Neutrophils # 4.4 (1.6-8.9) K/mcL BMP 02/28/19 08:05 Sodium 145 Potassium 3.7 Chloride 102 Carbon Dioxide 31 H BUN 14 Creatinine 0.64 Glucose 157 H Calcium 9.3 Cardiac Enzymes 02/28/19 Range/Units 08:05 Troponin I < 0.03 (< 0.04) ng/mL Liver Function 02/28/19 Range/Units 08:05 Total Bilirubin 0.4 (0.3-1.0) mg/dL Direct Bilirubin 0.1 (0.0-0.2) mg/dL AST 44 H (13-39) Units/L ALT 28 (7-52) Units/L Alkaline Phosphatase 85 (34-104) Units/L Albumin 3.8 (3.5-5.7) g/dL Urine 02/28/19 Range/Units 08:30 Urine Color Yellow (Yellow) Urine Clarity Turbid A (Clear) Urine pH 7.0 (5.0-8.0) pH Units Ur Specific [place] 1.022 (1.010-1.025) Urine Protein >=300 H (Neg-Trace) mg/dL Urine Glucose (UA) Normal (Normal) mg/dL - Impressions ITS Impressions Abdomen/Pelvis CT 02/28/19 07:39 IMPRESSION: 1. Interval decrease in extent and severity of fluid-filled small bowel loops. No evidence for bowel obstruction. 2. Large amount of recto sigmoid and descending colon stool on prior has been evacuated. 3. Redemonstration of 3 mm posterior basal right lower lobe nodule. Follow-up recommendations as stated on the prior exam and below. RECOMMENDATIONS: Fleischner Society guidelines for follow-up and management of incidentally detected pulmonary nodules: Single Solid Nodule: Nodule size less than 6 mm In a low-risk patient, no routine follow-up. In a high-risk patient, optional CT at 12 months. -Low risk patients include individuals with minimal or absent history of smoking and other known risk factors. - High risk patients include individuals with a history or smoking or known risk factors. Radiology 2017 http://pubs.rsna.org/doi/full/10.1148/radiol.5973336751 D/ / Kingsley Egan MD / Kingsley Egan MD Interpreting Provider: Knigsley Egan MD Chest X-Ray 02/28/19 07:40 IMPRESSION: No significant interval change since previous examination. Findings may represent mild pulmonary venous congestion. Correlation with volume status is recommended. D/ / Brandon Fleming MD / Brandon Fleming MD Interpreting Provider: Brandon Fleming MD - Assessment and Plan (1) Urinary tract infection Current Visit: Yes Status: Deleted Assessment and plan: Patient is presenting with fever. Reviewing the patient's record indicated that she was just discharged from the hospital after she was treated for bowel obstruction secondary to fecal impaction. As per ER record the patient have urinary tract infection that was not treated during her past admission. The patient was evaluated by the ER staff and urine analysis was suggestive of urinary tract infection. The patient was started on empiric antibiotic with ceftriaxone , we will continue ceftriaxone bending culture results to adjust antibiotic regimen accordingly. Qualifiers: Qualified Code(s): N39.0 - Urinary tract infection, site not specified; R31.9 - Hematuria, unspecified (2) Anemia Current Visit: No Status: Chronic Assessment and plan: Anemia of chronic disease. we will continue to monitor H&H Qualifiers: Anemia type: iron deficiency Iron deficiency anemia type: inadequate dietary iron intake Qualified Code(s): D50.8 - Other iron deficiency anemias (3) HLD (hyperlipidemia) Current Visit: No Status: Chronic Assessment and plan: We will obtain fasting lipid profile in a.m. Qualifiers: Hyperlipidemia type: pure hypercholesterolemia Qualified Code(s): E78.00 - Pure hypercholesterolemia, unspecified; E78.0 - Pure hypercholesterolemia (4) HTN (hypertension) Current Visit: No Status: Chronic Assessment and plan: We will continue home antihypertensive, we will monitor blood pressure while inpatient and adjust antihypertensive regimen if indicated. Qualifiers: Hypertension type: essential hypertension Qualified Code(s): I10 - Essential (primary) hypertension (5) Anxiety and depression Current Visit: No Status: Chronic Assessment and plan: We will continue home regimen. (6) DVT prophylaxis Current Visit: No Status: Acute Assessment and plan: We will start the patient on SCDs - Time Spent With Patient Total time spent is greater than 50% in coordination of care (as documented) at patient's floor/unit and/or counseling patient:
[2019-02-28] MEDS ORDERED: cefTRIAXone 2,000 MG in Water for inj. (sterile) 20 ML 20 ML IVP SCH (16:00)
--- NOTE | 2019-02-28 16:07 | Electrocardiograph Report ---
[address] [address] Test Date: 2019-02-28 Pat Name: Pia Santos Department: EXAM22 Room: 2A Gender: F Hollock Maker: : 1945 Requested By: Sterling Avalos Order Number: [id number] Reading MD: Jitendra Guadarrama Measurements Intervals [place] Rate: 103 P: 61 RI: 135 QRS: 9 QRSD: 86 T: 17 QT: 341 QTc: 447 Interpretive Statements Sinus tachycardia Nonspecific T abnrm, anterolateral leads Electronically Signed On 02-28-2019 16:05:43 EDT by Jitendra Guadarrama
[2019-02-28] MEDS: clonazePAM 1 MG TABLET PO SCH ×2 (16:15→21:35)
[2019-02-28] MEDS: 0.9 % Sodium Chloride 1,000 ML IVC SCH (16:15)
[2019-02-28] MEDS: Acetaminophen 325 MG TABLET PO PRN ×2 (16:15→21:35)
[2019-02-28] MEDS: Mirtazapine 15 MG TABLET PO SCH (21:35)
[2019-03-01] MEDS: 0.9 % Sodium Chloride 1,000 ML IVC SCH ×2 (00:24→10:12)
[2019-03-01] MEDS: Multivit/Ca/Min/Fe/FA 1 TAB TABLET PO SCH (10:11)
[2019-03-01] MEDS: clonazePAM 1 MG TABLET PO SCH ×3 (10:11→21:03)
[2019-03-01] MEDS: cefTRIAXone 2,000 MG in Water for inj. (sterile) 20 ML 20 ML IVP SCH (10:11)
--- NOTE | 2019-03-01 15:31 | Internal Med Progress Note ---
Hospitalist Progress Note - Encounter Date of Encounter: 03/01/19 Time of Encounter: 12:30 - Subjective Interval History: No acute events. Patient alert, pleasant. - Exam Vitals: Temp Pulse Resp BP Pulse Ox 97.7 F 129 22 129/74 93 03/01/19 12:33 03/01/19 12:33 03/01/19 12:33 03/01/19 12:33 03/01/19 12:33 Exam: Gen: NAD, AAOx1 Head: NC/AT ENT: MMM CVS: RRR Lungs: CTAB Abd: soft, nt/nd Ext: no edema - Assessment and Plan (1) Sepsis Current Visit: Yes Status: Acute Assessment and Plan: Secondary to UTI Follow-up blood cultures continue Rocephin Follow-up urine cultures: prelim is gram negative rods. Currently hemodynamically stable. (2) Urinary tract infection Current Visit: Yes Status: Acute Assessment and Plan: Plan as above; (3) Anemia Current Visit: No Status: Chronic Assessment and Plan: Anemia of chronic disease. we will continue to monitor H&H (4) HLD (hyperlipidemia) Current Visit: No Status: Chronic (5) HTN (hypertension) Current Visit: No Status: Chronic Assessment and Plan: We will continue home antihypertensive, we will monitor blood pressure while inpatient and adjust antihypertensive regimen if indicated. (6) DVT prophylaxis Current Visit: No Status: Acute Assessment and Plan: We will start the patient on SCDs (7) Anxiety and depression Current Visit: No Status: Chronic Assessment and Plan: We will continue home regimen. - Time Spent with Patient Total time spent is greater than 50% in coordination of care (as documented) at patient's floor/unit and/or counseling patient: Internal Medicine: Result - Labs CBC & Chem 7: 02/28/19 08:05 02/28/19 08:05 - ABG Interpretation ABG results: PT/INR, D-dimer PT 12.6 Seconds (9.4-12.1) H 02/28/19 08:05 Consult Discharge Plan - Plan Referrals: Edwardo Fowler MD [Primary Care Provider] - (1) Sepsis Qualifiers: Sepsis type: sepsis due to unspecified organism Qualified Code(s): A41.9 - Sepsis, unspecified organism (3) Anemia Qualifiers: Anemia type: iron deficiency Iron deficiency anemia type: inadequate dietary iron intake Qualified Code(s): D50.8 - Other iron deficiency anemias (4) HLD (hyperlipidemia) Qualifiers: Hyperlipidemia type: pure hypercholesterolemia Qualified Code(s): E78.00 - Pure hypercholesterolemia, unspecified; E78.0 - Pure hypercholesterolemia (5) HTN (hypertension) Qualifiers: Hypertension type: essential hypertension Qualified Code(s): I10 - Essential (primary) hypertension
[2019-03-01] MEDS ORDERED: *HR* Metoprolol 5 MG/5 ML VIAL IVP PRN (17:16)
[2019-03-01] MEDS: Mirtazapine 15 MG TABLET PO SCH (21:04)
[2019-03-02 02:36] LABS: Basophils % 0.2 %; Eosinophils # 0.1 K/mcL (0.0-0.6); Hematocrit 26.8 % (35.3-44.9); Immature Granulocytes % 0.4 % (0-4); Lymphocytes # 1.8 K/mcL (0.6-4.6); Lymphocytes % 38.4 %; Mean Corpuscular Hemoglobin 27.4 pg (28.0-33.3); Mean Corpuscular Volume 88.4 fL (83.0-100.0); Mean Platelet Volume 10.8 fL (9.4-12.4); Monocytes # 0.8 K/mcL (0.0-1.3); Neutrophils # 1.9 K/mcL (1.6-8.9); Platelet Count 142 K/mcL (140-400); Red Blood Count 3.03 M/mcL (3.82-4.97); Red Cell Distribution Width 14.6 % (11.5-14.5); White Blood Count 4.7 K/mcL (4.3-11.1)
[2019-03-02 02:39] LABS: Hemoglobin 8.3 g/dL (11.5-15.4)
[2019-03-02 02:54] LABS: BUN/Creatinine Ratio 24 (6-26); Blood Urea Nitrogen 12 mg/dL (8-23); Calcium 8.1 mg/dL (8.6-10.3); Carbon Dioxide 23 mEq/L (23-29); Chloride 110 mEq/L (98-107); Glucose 97 mg/dL (70-105); Osmolality,Calculated 294 (280-300); Potassium 3.1 mEq/L (3.5-5.1); Sodium 142 mEq/L (136-145); eGFR For African Americans > 60 (> 60); eGFR For Non-African Americans > 60 (> 60)
[2019-03-02] MEDS ORDERED: Bismuth Subsalicylate 120 ML ORAL SUSPENSION PO PRN (07:50)
[2019-03-02] MEDS ORDERED: Artificial Tears SOLN 15 ML BOTTLE BOTH EYES PRN (07:50)
[2019-03-02] MEDS: clonazePAM 1 MG TABLET PO SCH ×3 (08:49→21:10)
[2019-03-02] MEDS: Multivit/Ca/Min/Fe/FA 1 TAB TABLET PO SCH (08:50)
[2019-03-02] MEDS: cefTRIAXone 2,000 MG in Water for inj. (sterile) 20 ML 20 ML IVP SCH (08:50)
[2019-03-02] MEDS: (Calcium Carbonate/Vitamin D3 [Oyster Shell Calcium-V) PO SCH ×2 (10:36→21:10)
[2019-03-02] MEDS: carBAMazepine 200 MG TABLET PO SCH ×4 (10:41→21:10)
[2019-03-02] MEDS ORDERED: Potassium Chloride Elixir 20 MEQ/15 ML UDC PO ONE (11:29)
--- NOTE | 2019-03-02 11:30 | Internal Med Progress Note ---
Hospitalist Progress Note - Encounter Date of Encounter: 03/02/19 Time of Encounter: 11:34 - Subjective Interval History: No issues, no acute events. Patient at baseline mental status and does not respond to verbal commands appropriately. - Exam Vitals: Temp Pulse Resp BP Pulse Ox 98.7 F 91 16 118/68 98 03/02/19 08:18 03/02/19 08:18 03/02/19 08:18 03/02/19 08:18 03/02/19 08:18 Exam: Gen: NAD, does not respond to questions due to MRDD Head: NC/AT ENT: MMM CVS: RRR Lungs: CTAB Abd: soft, nt/nd Ext: no edema - Assessment and Plan (1) Sepsis Current Visit: Yes Status: Acute Assessment and Plan: Secondary to UTI Follow-up blood cultures: Proteus mirabilis, resistant to Macrobid patient sepsis appears improving - switch to Keflex. Follow-up urine cultures: prelim is gram negative rods. Currently hemodynamically stable. (2) Urinary tract infection due to Proteus Current Visit: Yes Status: Acute Assessment and Plan: Plan as above for Sepsis. (3) Anemia Current Visit: No Status: Chronic Assessment and Plan: Anemia of chronic disease. Today hemoglobin 8.3 down from 10.2. This could be hemodilutional as patient is +3L since admission. Recheck H&H in AM. (4) HLD (hyperlipidemia) Current Visit: No Status: Chronic Assessment and Plan: We will obtain fasting lipid profile in a.m. (5) HTN (hypertension) Current Visit: No Status: Chronic Assessment and Plan: We will continue home antihypertensive, we will monitor blood pressure while inpatient and adjust antihypertensive regimen if indicated. (6) DVT prophylaxis Current Visit: No Status: Acute Assessment and Plan: We will start the patient on SCDs (7) Anxiety and depression Current Visit: No Status: Chronic Assessment and Plan: We will continue home regimen. - Time Spent with Patient Total time spent is greater than 50% in coordination of care (as documented) at patient's floor/unit and/or counseling patient: Internal Medicine: Result - Labs CBC & Chem 7: 03/02/19 02:12 03/02/19 02:12 Labs: Short CBC 03/02/19 Range/Units 02:12 WBC 4.7 (4.3-11.1) K/mcL Hgb 8.3 L D (11.5-15.4) g/dL Hct 26.8 L (35.3-44.9) % Plt Count 142 (140-400) K/mcL Neutrophils # 1.9 (1.6-8.9) K/mcL BMP 03/02/19 02:12 Sodium 142 Potassium 3.1 L Chloride 110 H Carbon Dioxide 23 BUN 12 Creatinine 0.51 L Glucose 97 Calcium 8.1 L - ABG Interpretation ABG results: PT/INR, D-dimer PT 12.6 Seconds (9.4-12.1) H 02/28/19 08:05 Consult Discharge Plan - Plan Referrals: Edwardo Fowler MD [Primary Care Provider] - (1) Sepsis Qualifiers: Sepsis type: sepsis due to unspecified organism Qualified Code(s): A41.9 - Sepsis, unspecified organism (3) Anemia Qualifiers: Anemia type: iron deficiency Iron deficiency anemia type: inadequate dietary iron intake Qualified Code(s): D50.8 - Other iron deficiency anemias (4) HLD (hyperlipidemia) Qualifiers: Hyperlipidemia type: pure hypercholesterolemia Qualified Code(s): E78.00 - Pure hypercholesterolemia, unspecified; E78.0 - Pure hypercholesterolemia (5) HTN (hypertension) Qualifiers: Hypertension type: essential hypertension Qualified Code(s): I10 - Essential (primary) hypertension
[2019-03-02] MEDS: cephALEXin 500 MG CAPSULE PO SCH ×2 (16:11→21:10)
[2019-03-02] MEDS: Mirtazapine 15 MG TABLET PO SCH (21:10)
--- NOTE | 2019-03-03 08:05 | Internal Med Progress Note ---
Hospitalist Progress Note - Encounter Date of Encounter: 03/03/19 Time of Encounter: 11:19 - Subjective Interval History: No acute events. Patient at baseline mental status. No fevers, no change in urine. - Exam Vitals: Temp Pulse Resp BP Pulse Ox 98.8 F 68 19 116/68 96 03/03/19 06:35 03/03/19 06:35 03/03/19 06:35 03/03/19 06:35 03/03/19 06:35 Exam: Gen: NAD, does not respond to questions due to MRDD, more hyperactive today. Head: NC/AT ENT: MMM CVS: RRR Lungs: CTAB Abd: soft, nt/nd Ext: no edema - Assessment and Plan (1) Sepsis Current Visit: Yes Status: Acute Assessment and Plan: Secondary to UTI Follow-up blood cultures: Proteus mirabilis, resistant to Macrobid patient sepsis appears improving - switch to Keflex day #2 Currently hemodynamically stable. Dispo: Discharge plan back to [facility] when able. (2) Urinary tract infection due to Proteus Current Visit: Yes Status: Acute Assessment and Plan: Plan as above for Sepsis. (3) Anemia Current Visit: No Status: Chronic Assessment and Plan: Anemia of chronic disease. and hemodilutional component after receiving 3L IV fluids. Currently H&H stable. (4) HLD (hyperlipidemia) Current Visit: No Status: Chronic (5) HTN (hypertension) Current Visit: No Status: Chronic Assessment and Plan: Patient has had hypotensive episodes and is not hypertensive. (6) DVT prophylaxis Current Visit: No Status: Acute Assessment and Plan: SCDs (7) Anxiety and depression Current Visit: No Status: Chronic Assessment and Plan: We will continue home regimen. - Time Spent with Patient Total time spent is greater than 50% in coordination of care (as documented) at patient's floor/unit and/or counseling patient: Internal Medicine: Result - Labs CBC & Chem 7: 03/03/19 10:06 03/03/19 10:06 - ABG Interpretation ABG results: PT/INR, D-dimer PT 12.6 Seconds (9.4-12.1) H 02/28/19 08:05 Consult Discharge Plan - Plan Referrals: Edwardo Fowler MD [Primary Care Provider] - (1) Sepsis Qualifiers: Sepsis type: sepsis due to unspecified organism Qualified Code(s): A41.9 - Sepsis, unspecified organism (3) Anemia Qualifiers: Anemia type: iron deficiency Iron deficiency anemia type: inadequate dietary iron intake Qualified Code(s): D50.8 - Other iron deficiency anemias (4) HLD (hyperlipidemia) Qualifiers: Hyperlipidemia type: pure hypercholesterolemia Qualified Code(s): E78.00 - Pure hypercholesterolemia, unspecified; E78.0 - Pure hypercholesterolemia (5) HTN (hypertension) Qualifiers: Hypertension type: essential hypertension Qualified Code(s): I10 - Essential (primary) hypertension
[2019-03-03] MEDS: Multivit/Ca/Min/Fe/FA 1 TAB TABLET PO SCH (09:30)
[2019-03-03] MEDS: clonazePAM 1 MG TABLET PO SCH ×3 (09:30→20:13)
[2019-03-03] MEDS: cephALEXin 500 MG CAPSULE PO SCH ×3 (09:30→20:13)
[2019-03-03] MEDS: carBAMazepine 200 MG TABLET PO SCH ×4 (09:31→20:14)
[2019-03-03] MEDS: (Calcium Carbonate/Vitamin D3 [Oyster Shell Calcium-V) PO SCH ×2 (09:31→20:14)
[2019-03-03 10:37] LABS: Basophils % 0.2 %; Eosinophils # 0.1 K/mcL (0.0-0.6); Eosinophils % 1.1 %; Hematocrit 28.7 % (35.3-44.9); Immature Granulocytes % 0.3 % (0-4); Lymphocytes # 2.9 K/mcL (0.6-4.6); Lymphocytes % 45.3 %; Mean Corpuscular HGB Conc 31.4 g/dL (31.6-35.5); Mean Corpuscular Hemoglobin 27.3 pg (28.0-33.3); Mean Platelet Volume 10.9 fL (9.4-12.4); Monocytes # 0.8 K/mcL (0.0-1.3); Monocytes % 12.5 %; Neutrophils # 2.6 K/mcL (1.6-8.9); Platelet Count 198 K/mcL (140-400); Red Cell Distribution Width 14.3 % (11.5-14.5); Segmented Neutrophils % 40.6 %; White Blood Count 6.3 K/mcL (4.3-11.1)
[2019-03-03 10:55] LABS: BUN/Creatinine Ratio 19 (6-26); Blood Urea Nitrogen 11 mg/dL (8-23); Calcium 8.9 mg/dL (8.6-10.3); Carbon Dioxide 29 mEq/L (23-29); Chloride 107 mEq/L (98-107); Glucose 150 mg/dL (70-105); Osmolality,Calculated 300 (280-300); Potassium 3.2 mEq/L (3.5-5.1); Sodium 144 mEq/L (136-145); eGFR For African Americans > 60 (> 60); eGFR For Non-African Americans > 60 (> 60)
[2019-03-03] MEDS ORDERED: Potassium Chloride Elixir 20 MEQ/15 ML UDC PO ONE (11:16)
[2019-03-03] MEDS ORDERED: Magnesium Oxide 400 MG TABLET PO ONE (11:17)
[2019-03-03] MEDS: Mirtazapine 15 MG TABLET PO SCH (20:13)
[2019-03-03] MEDS: Acetaminophen 325 MG TABLET PO PRN (20:14)
[2019-03-04 06:58] VITALS: BP 116/74
[2019-03-04 07:18] LABS: Hematocrit 26.7 % (35.3-44.9); Hemoglobin 8.3 g/dL (11.5-15.4); Lymphocytes # 1.9 K/mcL (0.6-4.6); Mean Corpuscular HGB Conc 31.1 g/dL (31.6-35.5); Mean Corpuscular Hemoglobin 27.1 pg (28.0-33.3); Mean Corpuscular Volume 87.3 fL (83.0-100.0); Platelet Count 195 K/mcL (140-400); Red Blood Count 3.06 M/mcL (3.82-4.97); Red Cell Distribution Width 14.5 % (11.5-14.5); White Blood Count 5.4 K/mcL (4.3-11.1)
[2019-03-04 07:31] LABS: BUN/Creatinine Ratio 31 (6-26); Blood Urea Nitrogen 15 mg/dL (8-23); Calcium 8.8 mg/dL (8.6-10.3); Carbon Dioxide 28 mEq/L (23-29); Chloride 106 mEq/L (98-107); Glucose 102 mg/dL (70-105); Magnesium 2.2 mg/dL (1.6-2.6); Osmolality,Calculated 301 (280-300); Potassium 3.5 mEq/L (3.5-5.1); Sodium 145 mEq/L (136-145); eGFR For African Americans > 60 (> 60); eGFR For Non-African Americans > 60 (> 60)
--- NOTE | 2019-03-04 07:38 | Discharge Summary ---
Orders not resulted at time of discharge: Pending orders 02/28/19 08:11 Culture,Blood [BC] Stat 03/04/19 06:49 Complete Blood Count [HEME] AM 0400 03/05/19 04:00 BMP [Basic Metabolic Panel] AM 0400 Complete Blood Count [HEME] AM 0400 03/06/19 04:00 BMP [Basic Metabolic Panel] AM 0400 Complete Blood Count [HEME] AM 0400 03/07/19 04:00 BMP [Basic Metabolic Panel] AM 0400 Complete Blood Count [HEME] AM 0400 03/08/19 04:00 BMP [Basic Metabolic Panel] AM 0400 Complete Blood Count [HEME] AM 0400 03/09/19 04:00 BMP [Basic Metabolic Panel] AM 0400 Complete Blood Count [HEME] [place] 04003/10/19 04:00 BMP [Basic Metabolic Panel] AM 0400 Complete Blood Count [HEME] AM 0400 03/11/19 04:00 BMP [Basic Metabolic Panel] AM 0400 Complete Blood Count [HEME] AM 0400 Date of Encounter: 03/04/19 Time of Encounter: 07:38 - Discharge Diagnosis (1) Sepsis Priority: Primary Status: Acute Qualifiers: Sepsis type: sepsis due to unspecified organism Qualified Code(s): A41.9 - Sepsis, unspecified organism (2) Urinary tract infection due to Proteus Priority: Secondary Status: Acute (3) Anemia Priority: Secondary Status: Chronic Qualifiers: Anemia type: iron deficiency Iron deficiency anemia type: inadequate dietary iron intake Qualified Code(s): D50.8 - Other iron deficiency anemias (4) HLD (hyperlipidemia) Priority: Secondary Status: Chronic Qualifiers: Hyperlipidemia type: pure hypercholesterolemia Qualified Code(s): E78.00 - Pure hypercholesterolemia, unspecified; E78.0 - Pure hypercholesterolemia (5) HTN (hypertension) Priority: Secondary Status: Chronic Qualifiers: Hypertension type: essential hypertension Qualified Code(s): I10 - Essential (primary) hypertension (6) DVT prophylaxis Priority: Secondary Status: Acute (7) Anxiety and depression Priority: Secondary Status: Chronic Hospital course: 73-year-old female history of MRDD who presented to the ER with fever. Reviewing the patient's record indicated that she was just discharged from the hospital after she was treated for bowel obstruction secondary to fecal impaction. Urinalysis was done that showed UTI. She was treated with emperic ceftriaxone. She met sepsis criteria. Blood cultures obtained and were negative. She improved with Rocephin and continued to improve when de escalated to Keflex. She will be discharged back to longterm to complete a total of 7 day course of antibiotics. - Time Spent with Patient Total time spent providing and/or coordinating discharge services: - Discharge Medications Prescriptions: New cephALEXin [Keflex] 500 mg PO TID 2 Days #6 capsule Cholecalciferol (D-3) [Vitamin D] 1,000 unit PO DAILY #30 tablet Continued Atorvastatin Calcium [Lipitor] 20 mg PO QAM Benztropine [Cogentin] 1 mg PO BID Ferrous Sulfate [Iron] 325 mg PO DAILY Linaclotide [Linzess] 290 mcg PO DAILY clonazePAM [Clonazepam] 1 mg PO TID Mirtazapine [Remeron] 15 mg PO HS Ermias/Poly/Kylie OINT [Triple Antibiotic Ointment] 1 appl TP TID PRN PRN Reason: Wound Healing MOM Conc [MILK OF MAGNESIA conc] 30 ml PO PRN PRN PRN Reason: Constipation Quetiapine Fumarate [Seroquel] 300 mg PO BID Acetaminophen [Extra Strength Non-Aspirin] 500 mg PO Q4H PRN PRN Reason: PAIN/FEVER/HEADACHE Artificial Tears SOLN [Akwa Tears] 1 drop BOTH EYES PRN PRN PRN Reason: Dry Eyes Bismuth Subsalicylate [PEPTO-BISMOL (262mg/15mL) Susp] 262 mg PO Q4H PRN PRN Reason: Indigestion Calcium Carbonate/Vitamin D3 [Oyster Shell Calcium-Vit D Tab] 1 tab PO BID Guaifenesin [Cough Syrup] 200 mg PO Q4H PRN PRN Reason: Cough Multivitamin [Daily Multiple Vitamin] 1 tab PO DAILY Psyllium Husk [Tiffany-Mucil] 15 gm PO PRN PRN PRN Reason: Constipation Magnesium Citrate [Citroma] 150 ml PO QWEEK PRN PRN Reason: Constipation carBAMazepine [Carbamazepine ER] 200 mg PO HS carBAMazepine [Tegretol Xr] 400 mg PO BID Home Medications: Atorvastatin Calcium [Lipitor] 20 mg PO QAM 02/26/19 [History] Benztropine [Cogentin] 1 mg PO BID 02/26/19 [History] Ferrous Sulfate [Iron] 325 mg PO DAILY 02/26/19 [History] Linaclotide [Linzess] 290 mcg PO DAILY 02/26/19 [History] MOM Conc [MILK OF MAGNESIA conc] 30 ml PO PRN PRN 02/26/19 [History] Mirtazapine [Remeron] 15 mg PO HS 02/26/19 [History] Ermias/Poly/Kylie OINT [Triple Antibiotic Ointment] 1 appl TP TID PRN 02/26/19 [History] Quetiapine Fumarate [Seroquel] 300 mg PO BID 02/26/19 [History] clonazePAM [Clonazepam] 1 mg PO TID 02/26/19 [History] Acetaminophen [Extra Strength Non-Aspirin] 500 mg PO Q4H PRN 02/27/19 [History] Artificial Tears SOLN [Akwa Tears] 1 drop BOTH EYES PRN PRN 02/27/19 [History] Bismuth Subsalicylate [PEPTO-BISMOL (262mg/15mL) Susp] 262 mg PO Q4H PRN 02/27/19 [History] Calcium Carbonate/Vitamin D3 [Oyster Shell Calcium-Vit D Tab] 1 tab PO BID 02/27/19 [History] Guaifenesin [Cough Syrup] 200 mg PO Q4H PRN 02/27/19 [History] Multivitamin [Daily Multiple Vitamin] 1 tab PO DAILY 02/27/19 [History] Psyllium Husk [Tiffany-Mucil] 15 gm PO PRN PRN 02/27/19 [History] Magnesium Citrate [Citroma] 150 ml PO QWEEK PRN 02/28/19 [History] carBAMazepine [Carbamazepine ER] 200 mg PO HS 02/28/19 [History] carBAMazepine [Tegretol Xr] 400 mg PO BID 03/02/19 [History] Cholecalciferol (D-3) [Vitamin D] 1,000 unit PO DAILY #30 tablet 03/04/19 [Rx] cephALEXin [Keflex] 500 mg PO TID 2 Days #6 capsule 03/04/19 [Rx] Allergies/Adverse Reactions: Allergy/AdvReac Type Severity Reaction Status Date / Time [place] AdvReac See Verified 02/27/19 08:44 Comments Date of admission: 03/02/19 16:34 Primary care physician: Edwardo Fowler MD - Constitutional Vitals: Temp Pulse Resp BP Pulse Ox 97.4 F L 83 16 116/74 97 03/04/19 06:57 03/04/19 06:57 03/04/19 06:57 03/04/19 06:57 03/04/19 06:57 General appearance: Present: A&O X 3 Exam: Gen: NAD, does not respond to questions due to MRDD, more hyperactive today. Head: NC/AT ENT: MMM CVS: RRR Lungs: CTAB Abd: soft, nt/nd Ext: no edema - Patient Status Disposition: Home, Self-Care Condition: Fair Functional capacity at discharge: wheelchair bound Overall status at discharge: patient is back to baseline - Discharge Instructions Follow Up With: Edwardo Fowler MD [Primary Care Provider] - - Diet and Activity Activity: as per physical therapy Diet: advance to your usual diet
[2019-03-04] MEDS: carBAMazepine 200 MG TABLET PO SCH (09:29)
[2019-03-04] MEDS: cephALEXin 500 MG CAPSULE PO SCH ×2 (09:29→16:59)
[2019-03-04] MEDS: Multivit/Ca/Min/Fe/FA 1 TAB TABLET PO SCH (09:29)
[2019-03-04] MEDS: clonazePAM 1 MG TABLET PO SCH ×2 (09:30→16:59)
[2019-03-04] MEDS: (Calcium Carbonate/Vitamin D3 [Oyster Shell Calcium-V) PO SCH (09:30)
[2019-03-04 11:59] LABS: Monocytes # 0.5 K/mcL (0.0-1.3); Neutrophils # 2.9 K/mcL (1.6-8.9)
[2019-03-04 12:00] LABS: Platelet Estimate Normal (Normal); Toxic Granulation Present (Not Present)
[2019-03-04] MEDS ORDERED: CarBAMazepine XR (12 hr) 100 MG TAB PO SCH (21:00)
[2019-03-05] MEDS ORDERED: CarBAMazepine XR (12 hr) 100 MG TAB PO SCH (09:00)
[2019-03-05] MEDS ORDERED: Cholecalciferol (D-3) 1,000 UNIT TABLET PO SCH (09:00)
== END 2019-03-04 17:35 | disposition home or self-care (01) | DRG 872 ==
LOC: EMEROOARM 07:17 → 2ANU 07:17 → SUATTDRO 10:54 → 2ANU 11:20
PROVIDERS: ADMIT Internal Medicine Nephrology; ATTEND Student in an Organized Health Care Education/Training Program

== ENCOUNTER 2020-05-31 14:17 | Inpatient (IN) ==
[2020-05-31] MEDS ORDERED: Piperacillin/Tazobactam 3.375 GM in 0.9 % Sodium Chloride Mini Bag 100 ML IVPB ONE (14:45)
[2020-05-31] MEDS: 0.9 % Sodium Chloride 1,000 ML IVC SCH ×2 (14:52→15:47)
[2020-05-31 15:01] LABS: Basophils % 0.2 %; Eosinophils % 0.7 %; Hematocrit 34.6 % (35.3-44.9); Immature Granulocytes % 0.2 % (0-4); Lymphocytes # 2.8 K/mcL (0.6-4.6); Lymphocytes % 50.9 %; Mean Corpuscular HGB Conc 31.8 g/dL (31.6-35.5); Mean Corpuscular Hemoglobin 28.6 pg (28.0-33.3); Mean Corpuscular Volume 89.9 fL (83.0-100.0); Mean Platelet Volume 11.7 fL (9.4-12.4); Monocytes # 0.6 K/mcL (0.0-1.3); Monocytes % 10.8 %; Neutrophils # 2.1 K/mcL (1.6-8.9); Platelet Count 139 K/mcL (140-400); Red Blood Count 3.85 M/mcL (3.82-4.97); Red Cell Distribution Width 16.5 % (11.5-14.5); Segmented Neutrophils % 37.2 %; White Blood Count 5.5 K/mcL (4.3-11.1)
[2020-05-31 15:05] LABS: Bilirubin,Urine Negative (Negative); Blood,Urine Negative (Negative); Clarity,Urine Clear (Clear); Color,Urine Light-Yellow (Yellow); Glucose,Urine (UA) Normal (Normal); Ketones,Urine Negative (Negative); Leukocyte Esterase,Urine Negative (Negative); Nitrite,Urine Negative (Negative); Protein,Urine Negative (Neg-Trace); Specific Gravity,Urine 1.026 (1.010-1.025)
[2020-05-31 15:08] LABS: Prothrombin Time 11.8 Seconds (9.4-12.1)
[2020-05-31 15:11] LABS: Activated Partial Thrombo Time 37.2 Seconds (26.0-36.0)
[2020-05-31 15:14] LABS: VBG HCO3 31 mEq/L (21-27); VBG PCO2 59 mmHg (41-51); VBG PH 7.33 pH Units (7.32-7.42); VBG PO2 60 mmHg (25-50)
[2020-05-31 15:14] LABS: Amphetamine Screen,Urine Negative ng/mL (Cutoff=1000); Barbiturate Screen,Urine Negative ng/mL (Cutoff=200); Benzodiazepines Screen,Urine Negative ng/mL (Cutoff=200); Cannabinoid Screen,Urine Negative ng/mL (Cutoff = 50); Cocaine Screen,Urine Negative ng/mL (Cutoff= 300); Opiate Screen,Urine Negative ng/mL (Cutoff=300); Phencyclidine Screen,Urine Negative ng/mL (Cutoff=25)
[2020-05-31 15:26] LABS: Alanine Aminotransferase 79 Units/L (7-52); Albumin 3.8 g/dL (3.5-5.7); Albumin/Globulin Ratio 1.1 (1.1-2.2); Alkaline Phosphatase 75 Units/L (34-104); Aspartate Amino Transferase 42 Units/L (13-39); BUN/Creatinine Ratio 43 (6-26); Bilirubin,Indirect 0.2 mg/dL (0.0-1.0); Bilirubin,Total 0.2 mg/dL (0.3-1.0); Blood Urea Nitrogen 32 mg/dL (8-23); Calcium 10.4 mg/dL (8.6-10.3); Carbon Dioxide 30 mEq/L (23-29); Chloride 108 mEq/L (98-107); Globulin 3.4 g/dL (2.4-3.5); Glucose 82 mg/dL (70-105); Magnesium 2.2 mg/dL (1.6-2.6); Osmolality,Calculated 306 (280-300); Potassium 4.5 mEq/L (3.5-5.1); Sodium 145 mEq/L (136-145); Total Protein 7.2 g/dL (6.4-8.9); Troponin I < 0.03 ng/mL (< 0.04); eGFR For African Americans > 60 (> 60); eGFR For Non-African Americans > 60 (> 60)
[2020-05-31 15:55] LABS: Thyroid Stimulating Hormone 6.374 mcIU/mL (0.340-5.600)
[2020-05-31] MEDS ORDERED: Azithromycin 500 MG in D5% in Water 250 ML IVPB STA (16:01)
[2020-05-31 16:14] LABS: Adenovirus Not Detected (Not Detect); Bordetella Pertussis Not Detected (Not Detect); Chlamydophila pneumoniae Not Detected (Not Detect); Coronavirus 229E Not Detected (Not Detect); Coronavirus HKU1 Not Detected (Not Detect); Coronavirus NL63 Not Detected (Not Detect); Coronavirus OC43 Not Detected (Not Detect); Human Metapneumovirus Not Detected (Not Detect); Human Rhinovirus/Enterovirus Not Detected (Not Detect); Influenza A Subtype 2009 H1 Not Detected (Not Detect); Influenza B Not Detected (Not Detect); Mycoplasma pneumoniae Not Detected (Not Detect); Parainfluenza Virus 1 Not Detected (Not Detect); Parainfluenza Virus 2 Not Detected (Not Detect); Parainfluenza Virus 3 Not Detected (Not Detect); Parainfluenza Virus 4 Not Detected (Not Detect); Respiratory Syncytial Virus Not Detected (Not Detect); SARS-CoV-2 Not Detected (Not Detect)
[2020-05-31] MEDS ORDERED: *HR* LORazepam 2 MG/ML VIAL IVP ONE (16:27)
[2020-05-31] MEDS ORDERED: Norepinephrine 4 MG/254 ML IV.SOLN IVC SCH (16:30)
[2020-05-31] MEDS ORDERED: Acetaminophen 325 MG TABLET PO PRN (18:10)
[2020-05-31] MEDS ORDERED: Naloxone 0.4 MG/ML INJ IVP PRN (18:10)
[2020-05-31] MEDS ORDERED: clonazePAM 1 MG TABLET PO PRN (18:16)
[2020-05-31] MEDS ORDERED: Artificial Tears SOLN 15 ML BOTTLE BOTH EYES PRN (18:16)
[2020-05-31] MEDS ORDERED: Mag Hydrox/Al Hydrox/Simeth 30 ML UDC PO PRN (18:16)
[2020-05-31] MEDS ORDERED: Vancomycin (wt based) 1,000 MG VIAL IVPB SCH (19:00)
[2020-05-31] MEDS ORDERED: Vancomycin 500 MG in 0.9 % Sodium Chloride Mini Bag 100 ML IVPB ONE (20:00)
[2020-05-31] MEDS ORDERED: Vancomycin 1,500 MG/265 ML IV.SOLN IVPB SCH (20:00)
[2020-05-31] MEDS: *HR* Heparin 5,000 UNIT/ML VIAL SQ SCH (20:54)
[2020-05-31] MEDS: polyethylene glycoL 3350 17 GM POWD.PACK PO SCH (20:54)
[2020-05-31] MEDS ORDERED: Divalproex (24 HR) 500 MG TABLET PO SCH (21:00)
[2020-05-31] MEDS ORDERED: QUEtiapine Fumarate 100 MG TABLET PO SCH (21:00)
[2020-05-31] MEDS: Piperacillin/Tazobactam 3.375 GM in 0.9 % Sodium Chloride Mini Bag 100 ML IVPB SCH (22:49)
[2020-06-01] MEDS ORDERED: Vancomycin 1,500 MG/265 ML IV.SOLN IVPB ONE (03:00)
[2020-06-01 04:18] LABS: Basophils % 0.2 %; Eosinophils # 0.1 K/mcL (0.0-0.6); Hematocrit 27.4 % (35.3-44.9); Immature Granulocytes % 0.4 % (0-4); Lymphocytes # 2.8 K/mcL (0.6-4.6); Lymphocytes % 54.4 %; Mean Corpuscular Hemoglobin 28.1 pg (28.0-33.3); Mean Corpuscular Volume 90.7 fL (83.0-100.0); Mean Platelet Volume 12.1 fL (9.4-12.4); Monocytes # 0.5 K/mcL (0.0-1.3); Monocytes % 9.2 %; Neutrophils # 1.8 K/mcL (1.6-8.9); Platelet Count 112 K/mcL (140-400); Red Blood Count 3.02 M/mcL (3.82-4.97); Red Cell Distribution Width 16.5 % (11.5-14.5); Segmented Neutrophils % 34.8 %; White Blood Count 5.1 K/mcL (4.3-11.1)
[2020-06-01 04:20] LABS: Hemoglobin 8.5 g/dL (11.5-15.4)
[2020-06-01 04:30] LABS: Alanine Aminotransferase 56 Units/L (7-52); Albumin 2.9 g/dL (3.5-5.7); Albumin/Globulin Ratio 1.1 (1.1-2.2); Alkaline Phosphatase 56 Units/L (34-104); Aspartate Amino Transferase 35 Units/L (13-39); BUN/Creatinine Ratio 33 (6-26); Bilirubin,Direct 0.1 mg/dL (0.0-0.2); Bilirubin,Indirect 0.1 mg/dL (0.0-1.0); Bilirubin,Total 0.2 mg/dL (0.3-1.0); Blood Urea Nitrogen 23 mg/dL (8-23); Calcium 8.4 mg/dL (8.6-10.3); Carbon Dioxide 26 mEq/L (23-29); Chloride 114 mEq/L (98-107); Globulin 2.6 g/dL (2.4-3.5); Glucose 56 mg/dL (70-105); Magnesium 1.9 mg/dL (1.6-2.6); Osmolality,Calculated 299 (280-300); Phosphorous 3.2 mg/dL (2.7-4.5); Potassium 4.1 mEq/L (3.5-5.1); Sodium 144 mEq/L (136-145); Total Protein 5.5 g/dL (6.4-8.9); eGFR For African Americans > 60 (> 60); eGFR For Non-African Americans > 60 (> 60)
[2020-06-01] MEDS: *HR* Heparin 5,000 UNIT/ML VIAL SQ SCH ×3 (06:09→21:45)
[2020-06-01] MEDS: Piperacillin/Tazobactam 3.375 GM in 0.9 % Sodium Chloride Mini Bag 100 ML IVPB SCH ×3 (06:09→21:43)
[2020-06-01] MEDS: polyethylene glycoL 3350 17 GM POWD.PACK PO SCH ×2 (07:57→21:45)
[2020-06-01] MEDS ORDERED: Bisacodyl 10 MG RECTAL SUPPOSITORY RC SCH (09:00)
[2020-06-01 10:38] LABS: Hematocrit 28.3 % (35.3-44.9); Hemoglobin 8.7 g/dL (11.5-15.4)
[2020-06-01] MEDS ORDERED: Acetaminophen 325 MG TABLET PO PRN (14:07)
[2020-06-01] MEDS ORDERED: Mag Hydrox/Al Hydrox/Simeth 30 ML UDC PO PRN (14:07)
[2020-06-01] MEDS ORDERED: Artificial Tears SOLN 15 ML BOTTLE BOTH EYES PRN (14:07)
[2020-06-01] MEDS ORDERED: clonazePAM 1 MG TABLET PO PRN (14:07)
[2020-06-01] MEDS ORDERED: Naloxone 0.4 MG/ML INJ IVP PRN (14:07)
[2020-06-01] MEDS: QUEtiapine Fumarate 100 MG TABLET PO SCH (21:45)
[2020-06-01] MEDS: Divalproex (24 HR) 500 MG TABLET PO SCH ×2 (21:45→22:32)
[2020-06-01] MEDS ORDERED: 0.9 % Sodium Chloride 500 ML IVC ONE (21:49)
[2020-06-01] MEDS ORDERED: Acetaminophen IV 1,000 MG/100 ML INFUS..BTL IVPB ONE (21:59)
[2020-06-02] MEDS ORDERED: 0.9 % Sodium Chloride 500 ML IVC ONE (00:43)
[2020-06-02 02:12] LABS: Immature Granulocytes % 0.5 % (0-4)
[2020-06-02 02:14] LABS: Basophils % 0.5 %; Eosinophils % 0.5 %; Hematocrit 26.8 % (35.3-44.9); Hemoglobin 8.5 g/dL (11.5-15.4); Lymphocytes # 2.2 K/mcL (0.6-4.6); Lymphocytes % 33.2 %; Mean Corpuscular HGB Conc 31.7 g/dL (31.6-35.5); Mean Corpuscular Hemoglobin 27.4 pg (28.0-33.3); Mean Corpuscular Volume 86.5 fL (83.0-100.0); Mean Platelet Volume 12.6 fL (9.4-12.4); Monocytes # 0.8 K/mcL (0.0-1.3); Monocytes % 12.2 %; Neutrophils # 3.5 K/mcL (1.6-8.9); Nucleated Red Blood Cells 0.5 /100 WBC (0); Platelet Count 113 K/mcL (140-400); Red Cell Distribution Width 16.3 % (11.5-14.5); Segmented Neutrophils % 53.1 %; White Blood Count 6.5 K/mcL (4.3-11.1)
[2020-06-02 02:14] LABS: VBG HCO3 25 mEq/L (21-27); VBG PCO2 34 mmHg (41-51); VBG PH 7.47 pH Units (7.32-7.42); VBG PO2 158 mmHg (25-50)
[2020-06-02] MEDS ORDERED: Vancomycin 1,250 MG/262.5 ML IV.SOLN IVPB SCH (03:00)
[2020-06-02] MEDS: *HR* Heparin 5,000 UNIT/ML VIAL SQ SCH ×3 (05:53→21:03)
[2020-06-02] MEDS: Bisacodyl 10 MG RECTAL SUPPOSITORY RC SCH (09:09)
[2020-06-02] MEDS: Piperacillin/Tazobactam 3.375 GM in 0.9 % Sodium Chloride Mini Bag 100 ML IVPB SCH ×2 (09:12→16:10)
[2020-06-02] MEDS: Multivit/Ca/Min/Fe/FA 1 TAB TABLET PO SCH (09:28)
[2020-06-02] MEDS: polyethylene glycoL 3350 17 GM POWD.PACK PO SCH ×2 (09:28→21:00)
[2020-06-02 11:30] LABS: % Iron Saturation 20 % (15-50); Iron 61 mcg/dL (50-170); Transferrin 216 mg/dL (203-362)
[2020-06-02 14:49] LABS: Hemoglobin 8.2 g/dL (11.5-15.4)
[2020-06-02] MEDS ORDERED: Hydrocortisone 10 MG TABLET PO ONE (19:30)
[2020-06-02 20:38] LABS: Hematocrit 27.5 % (35.3-44.9); Hemoglobin 8.8 g/dL (11.5-15.4)
[2020-06-02] MEDS: Divalproex (24 HR) 500 MG TABLET PO SCH (21:03)
[2020-06-03] MEDS: Piperacillin/Tazobactam 3.375 GM in 0.9 % Sodium Chloride Mini Bag 100 ML IVPB SCH ×2 (00:33→08:47)
[2020-06-03 06:03] LABS: Basophils % 0.4 %; Eosinophils % 0.4 %; Hematocrit 29.7 % (35.3-44.9); Hemoglobin 9.4 g/dL (11.5-15.4); Immature Granulocytes % 0.9 % (0-4); Lymphocytes # 2.2 K/mcL (0.6-4.6); Lymphocytes % 41.5 %; Mean Corpuscular HGB Conc 31.6 g/dL (31.6-35.5); Mean Corpuscular Hemoglobin 27.7 pg (28.0-33.3); Mean Corpuscular Volume 87.6 fL (83.0-100.0); Mean Platelet Volume 11.7 fL (9.4-12.4); Monocytes # 0.7 K/mcL (0.0-1.3); Monocytes % 12.9 %; Neutrophils # 2.3 K/mcL (1.6-8.9); Platelet Count 110 K/mcL (140-400); Red Blood Count 3.39 M/mcL (3.82-4.97); Red Cell Distribution Width 16.5 % (11.5-14.5); Segmented Neutrophils % 43.9 %; White Blood Count 5.3 K/mcL (4.3-11.1)
[2020-06-03] MEDS: *HR* Heparin 5,000 UNIT/ML VIAL SQ SCH ×3 (06:41→21:30)
[2020-06-03] MEDS: polyethylene glycoL 3350 17 GM POWD.PACK PO SCH ×2 (08:43→21:30)
[2020-06-03] MEDS: Bisacodyl 10 MG RECTAL SUPPOSITORY RC SCH (08:47)
[2020-06-03] MEDS: Multivit/Ca/Min/Fe/FA 1 TAB TABLET PO SCH (08:47)
[2020-06-03] MEDS ORDERED: *HR* Propofol 200 MG/20 ML VIAL IVP ONE (14:56)
[2020-06-03] MEDS ORDERED: Lidocaine -MPF 2% 2 ML VIAL ONE (14:56)
[2020-06-03] MEDS ORDERED: SODIUM CHLORIDE/NAHCO3/KCL/PEG 4,000 ML SOLN.RECON GTUBE ONE (17:00)
[2020-06-03] MEDS: Divalproex (24 HR) 500 MG TABLET PO SCH (21:31)
[2020-06-04] MEDS ORDERED: Ondansetron 4 MG/2 ML VIAL IVP ONE (04:56)
[2020-06-04] MEDS: *HR* Heparin 5,000 UNIT/ML VIAL SQ SCH ×3 (05:58→21:23)
[2020-06-04 06:02] LABS: Basophils % 0.6 %; Eosinophils % 0.1 %; Hematocrit 31.2 % (35.3-44.9); Hemoglobin 9.6 g/dL (11.5-15.4); Immature Granulocytes % 1.2 % (0-4); Lymphocytes # 1.8 K/mcL (0.6-4.6); Lymphocytes % 25.5 %; Mean Corpuscular HGB Conc 30.8 g/dL (31.6-35.5); Mean Corpuscular Hemoglobin 27.9 pg (28.0-33.3); Mean Corpuscular Volume 90.7 fL (83.0-100.0); Mean Platelet Volume 12.8 fL (9.4-12.4); Monocytes # 0.5 K/mcL (0.0-1.3); Monocytes % 7.3 %; Neutrophils # 4.5 K/mcL (1.6-8.9); Platelet Count 119 K/mcL (140-400); Red Blood Count 3.44 M/mcL (3.82-4.97); Red Cell Distribution Width 16.7 % (11.5-14.5); Segmented Neutrophils % 65.3 %; White Blood Count 6.9 K/mcL (4.3-11.1)
[2020-06-04 06:05] LABS: BUN/Creatinine Ratio 23 (6-26); Blood Urea Nitrogen 15 mg/dL (8-23); Calcium 9.4 mg/dL (8.6-10.3); Carbon Dioxide 19 mEq/L (23-29); Chloride 103 mEq/L (98-107); Glucose 56 mg/dL (70-105); Osmolality,Calculated 292 (280-300); Potassium 3.6 mEq/L (3.5-5.1); Sodium 142 mEq/L (136-145); eGFR For African Americans > 60 (> 60); eGFR For Non-African Americans > 60 (> 60)
[2020-06-04] MEDS: polyethylene glycoL 3350 17 GM POWD.PACK PO SCH ×2 (11:59→21:35)
[2020-06-04] MEDS: Multivit/Ca/Min/Fe/FA 1 TAB TABLET PO SCH (11:59)
[2020-06-04] MEDS: Bisacodyl 10 MG RECTAL SUPPOSITORY RC SCH (14:55)
[2020-06-04] MEDS: Pantoprazole 40 MG VIAL IVP SCH (16:58)
[2020-06-04] MEDS: Divalproex (24 HR) 500 MG TABLET PO SCH (21:23)
[2020-06-05] MEDS: Pantoprazole 40 MG VIAL IVP SCH ×2 (05:06→18:48)
[2020-06-05] MEDS: *HR* Heparin 5,000 UNIT/ML VIAL SQ SCH ×3 (05:06→21:47)
[2020-06-05 06:11] LABS: Basophils % 0.3 %; Eosinophils % 0.4 %; Hematocrit 28.5 % (35.3-44.9); Immature Granulocytes % 0.7 % (0-4); Lymphocytes % 43.2 %; Mean Corpuscular HGB Conc 31.6 g/dL (31.6-35.5); Mean Corpuscular Volume 88.8 fL (83.0-100.0); Mean Platelet Volume 12.7 fL (9.4-12.4); Monocytes # 1.1 K/mcL (0.0-1.3); Neutrophils # 2.8 K/mcL (1.6-8.9); Platelet Count 108 K/mcL (140-400); Red Blood Count 3.21 M/mcL (3.82-4.97); Red Cell Distribution Width 16.7 % (11.5-14.5); Segmented Neutrophils % 40.4 %
[2020-06-05 06:30] LABS: BUN/Creatinine Ratio 17 (6-26); Blood Urea Nitrogen 12 mg/dL (8-23); Calcium 9.3 mg/dL (8.6-10.3); Carbon Dioxide 27 mEq/L (23-29); Chloride 105 mEq/L (98-107); Glucose 75 mg/dL (70-105); Osmolality,Calculated 292 (280-300); Potassium 3.4 mEq/L (3.5-5.1); Sodium 142 mEq/L (136-145); eGFR For African Americans > 60 (> 60); eGFR For Non-African Americans > 60 (> 60)
[2020-06-05] MEDS: polyethylene glycoL 3350 17 GM POWD.PACK PO SCH ×2 (08:16→20:43)
[2020-06-05] MEDS: Multivit/Ca/Min/Fe/FA 1 TAB TABLET PO SCH (08:16)
[2020-06-05] MEDS: Bisacodyl 10 MG RECTAL SUPPOSITORY RC SCH (08:16)
[2020-06-05] MEDS ORDERED: Potassium Chloride 20 MEQ, Lidocaine 1% 2 ML in 0.9 % Sodium Chloride 250 ML IVPB ONE (09:23)
[2020-06-05 10:38] LABS: Magnesium 1.6 mg/dL (1.6-2.6)
[2020-06-05] MEDS ORDERED: Dextrose Gel 15 GM/37.5 ML TUBE PO PRN ×2 (15:41)
[2020-06-05] MEDS ORDERED: *HR* Dextrose 50 % in Water (Vial) 50 ML VIAL IVP PRN (15:41)
[2020-06-05] MEDS ORDERED: D5% in Water 1,000 ML IVC PRN (15:41)
[2020-06-05] MEDS ORDERED: Ampicillin/Sulbactam 1,500 MG in 0.9 % Sodium Chloride Mini Bag 100 ML IVPB SCH (18:00)
[2020-06-05] MEDS: Divalproex (24 HR) 500 MG TABLET PO SCH (20:43)
[2020-06-05] MEDS: QUEtiapine Fumarate 100 MG TABLET PO SCH (20:43)
[2020-06-05] MEDS: Amoxicillin/Clavulanate 400 MG/5 ML UDC PO SCH (21:48)
[2020-06-06] MEDS: *HR* Heparin 5,000 UNIT/ML VIAL SQ SCH ×2 (04:48→15:51)
[2020-06-06] MEDS: Amoxicillin/Clavulanate 400 MG/5 ML UDC PO SCH ×2 (04:49→16:31)
[2020-06-06] MEDS: Bisacodyl 10 MG RECTAL SUPPOSITORY RC SCH (07:53)
[2020-06-06] MEDS: polyethylene glycoL 3350 17 GM POWD.PACK PO SCH (11:03)
[2020-06-06] MEDS: Multivit/Ca/Min/Fe/FA 1 TAB TABLET PO SCH (11:07)
[2020-06-06] MEDS ORDERED: QUEtiapine Fumarate 100 MG TABLET PO ONE (11:15)
[2020-06-06 11:19] VITALS: BP 130/86
[2020-06-06] MEDS ORDERED: Amoxicillin/Clavulanate 200 MG/5 ML UDC PO SCH (20:00)
== END 2020-06-06 18:34 | DRG 871 ==
LOC: EMEROOARM 14:17 → SUATTDRO 17:59 → ICNU 17:59 → 2ANU 06-01 15:26
PROVIDERS: ADMIT Pediatrics; ATTEND Student in an Organized Health Care Education/Training Program
PROC: ENDOEBX (2020-06-03 12:25)

== ENCOUNTER 2020-06-14 12:26 | Inpatient (IN) ==
[2020-06-14 13:23] LABS: Basophils % 0.3 %; Eosinophils # 0.1 K/mcL (0.0-0.6); Eosinophils % 1.6 %; Hematocrit 30.8 % (35.3-44.9); Hemoglobin 9.5 g/dL (11.5-15.4); Immature Granulocytes % 0.3 % (0-4); Lymphocytes # 1.7 K/mcL (0.6-4.6); Lymphocytes % 43.8 %; Mean Corpuscular HGB Conc 30.8 g/dL (31.6-35.5); Mean Corpuscular Hemoglobin 27.7 pg (28.0-33.3); Mean Corpuscular Volume 89.8 fL (83.0-100.0); Mean Platelet Volume 11.7 fL (9.4-12.4); Monocytes # 0.4 K/mcL (0.0-1.3); Monocytes % 10.3 %; Neutrophils # 1.7 K/mcL (1.6-8.9); Platelet Count 226 K/mcL (140-400); Red Blood Count 3.43 M/mcL (3.82-4.97); Red Cell Distribution Width 17.2 % (11.5-14.5); Segmented Neutrophils % 43.7 %; White Blood Count 3.8 K/mcL (4.3-11.1)
[2020-06-14 13:47] LABS: Alanine Aminotransferase 40 Units/L (7-52); Albumin 3.4 g/dL (3.5-5.7); Albumin/Globulin Ratio 1.1 (1.1-2.2); Alkaline Phosphatase 50 Units/L (34-104); Aspartate Amino Transferase 33 Units/L (13-39); BUN/Creatinine Ratio 38 (6-26); Bilirubin,Total 0.2 mg/dL (0.3-1.0); Blood Urea Nitrogen 24 mg/dL (8-23); Calcium 9.2 mg/dL (8.6-10.3); Carbon Dioxide 30 mEq/L (23-29); Chloride 107 mEq/L (98-107); Globulin 3.1 g/dL (2.4-3.5); Glucose 103 mg/dL (70-105); Osmolality,Calculated 304 (280-300); Potassium 4.2 mEq/L (3.5-5.1); Sodium 145 mEq/L (136-145); Total Protein 6.5 g/dL (6.4-8.9); Troponin I < 0.03 ng/mL (< 0.04); eGFR For African Americans > 60 (> 60); eGFR For Non-African Americans > 60 (> 60)
[2020-06-14 13:50] LABS: Bilirubin,Urine Negative (Negative); Blood,Urine Negative (Negative); Clarity,Urine Clear (Clear); Color,Urine Light-Yellow (Yellow); Glucose,Urine (UA) Normal (Normal); Ketones,Urine Negative (Negative); Leukocyte Esterase,Urine Trace (Negative); Mucus,Urine Few per lpf (None-Few); Nitrite,Urine Negative (Negative); Protein,Urine Negative (Neg-Trace); RBC,Urine 0-3 per hpf (0-3); Specific Gravity,Urine 1.018 (1.010-1.025); Squamous Epithelial Cell,Urine Few per hpf (None-Few); Urobilinogen,Urine Normal (Normal)
[2020-06-14] MEDS ORDERED: 0.9 % Sodium Chloride 1,000 ML IV ONE (14:18)
[2020-06-14] MEDS ORDERED: Piperacillin/Tazobactam 3.375 GM in 0.9 % Sodium Chloride Mini Bag 100 ML IVPB ONE (15:05)
[2020-06-14 15:56] LABS: Thyroid Stimulating Hormone 2.325 mcIU/mL (0.340-5.600)
[2020-06-14] MEDS ORDERED: Naloxone 0.4 MG/ML INJ IVP PRN (17:59)
[2020-06-15] MEDS: Piperacillin/Tazobactam 3.375 GM in 0.9 % Sodium Chloride Mini Bag 100 ML IVPB SCH ×3 (00:01→15:28)
[2020-06-15 05:30] LABS: Basophils % 0.3 %; Eosinophils # 0.1 K/mcL (0.0-0.6); Eosinophils % 1.3 %; Hematocrit 29.7 % (35.3-44.9); Hemoglobin 9.3 g/dL (11.5-15.4); Immature Granulocytes % 0.5 % (0-4); Lymphocytes # 1.8 K/mcL (0.6-4.6); Lymphocytes % 46.9 %; Mean Corpuscular HGB Conc 31.3 g/dL (31.6-35.5); Mean Corpuscular Hemoglobin 27.7 pg (28.0-33.3); Mean Corpuscular Volume 88.4 fL (83.0-100.0); Mean Platelet Volume 11.6 fL (9.4-12.4); Monocytes # 0.4 K/mcL (0.0-1.3); Monocytes % 9.9 %; Neutrophils # 1.6 K/mcL (1.6-8.9); Platelet Count 225 K/mcL (140-400); Red Blood Count 3.36 M/mcL (3.82-4.97); Red Cell Distribution Width 17.3 % (11.5-14.5); Segmented Neutrophils % 41.1 %; White Blood Count 3.8 K/mcL (4.3-11.1)
[2020-06-15 05:48] LABS: BUN/Creatinine Ratio 28 (6-26); Blood Urea Nitrogen 20 mg/dL (8-23); Calcium 8.9 mg/dL (8.6-10.3); Carbon Dioxide 29 mEq/L (23-29); Chloride 109 mEq/L (98-107); Glucose 68 mg/dL (70-105); Magnesium 1.8 mg/dL (1.6-2.6); Osmolality,Calculated 301 (280-300); Phosphorous 2.9 mg/dL (2.7-4.5); Potassium 3.8 mEq/L (3.5-5.1); Sodium 145 mEq/L (136-145); eGFR For African Americans > 60 (> 60); eGFR For Non-African Americans > 60 (> 60)
[2020-06-15] MEDS ORDERED: Artificial Tears SOLN 15 ML BOTTLE BOTH EYES PRN (08:57)
[2020-06-15] MEDS: clonazePAM 1 MG TABLET PO SCH ×3 (10:16→21:35)
[2020-06-15] MEDS: Plecanatide [Trulance] 3 MG PO SCH (10:17)
[2020-06-15] MEDS: Multivit/Ca/Min/Fe/FA 1 TAB TABLET PO SCH (10:17)
[2020-06-15] MEDS: Cholecalciferol (D-3) 1,000 UNIT (25MCG) TABLET PO SCH (10:17)
[2020-06-15] MEDS ORDERED: QUEtiapine Fumarate 100 MG TABLET PO SCH (21:00)
[2020-06-15] MEDS ORDERED: Divalproex (24 HR) 500 MG TABLET PO SCH (21:00)
[2020-06-16] MEDS: Piperacillin/Tazobactam 3.375 GM in 0.9 % Sodium Chloride Mini Bag 100 ML IVPB SCH (00:57)
[2020-06-16 06:57] VITALS: BP 108/65
[2020-06-16] MEDS: clonazePAM 1 MG TABLET PO SCH (08:52)
[2020-06-16] MEDS: Cholecalciferol (D-3) 1,000 UNIT (25MCG) TABLET PO SCH (08:52)
[2020-06-16] MEDS: Plecanatide [Trulance] 3 MG PO SCH (08:52)
[2020-06-16] MEDS: Multivit/Ca/Min/Fe/FA 1 TAB TABLET PO SCH (08:52)
[2020-06-16] MEDS ORDERED: Amoxicillin/Clavulanate 400 MG/5 ML UDC PO SCH (09:00)
== END 2020-06-16 12:29 | disposition other institution (70) | DRG 872 ==
LOC: 2ANU 12:26 → EMEROOARM 12:26 → SUATTDRO 15:17 → 2NNU 16:21 → 3BNU 06-15 12:24
PROVIDERS: ADMIT Internal Medicine; ATTEND Internal Medicine

== ENCOUNTER 2020-06-16 22:20 | Inpatient (IN) ==
[2020-06-16 23:35] LABS: Basophils % 0.2 %; Eosinophils # 0.1 K/mcL (0.0-0.6); Eosinophils % 1.3 %; Hematocrit 30.5 % (35.3-44.9); Hemoglobin 9.3 g/dL (11.5-15.4); Immature Granulocytes % 0.4 % (0-4); Lymphocytes # 1.8 K/mcL (0.6-4.6); Lymphocytes % 37.9 %; Mean Corpuscular HGB Conc 30.5 g/dL (31.6-35.5); Mean Corpuscular Hemoglobin 27.2 pg (28.0-33.3); Mean Corpuscular Volume 89.2 fL (83.0-100.0); Monocytes # 0.7 K/mcL (0.0-1.3); Monocytes % 13.8 %; Neutrophils # 2.2 K/mcL (1.6-8.9); Platelet Count 179 K/mcL (140-400); Red Blood Count 3.42 M/mcL (3.82-4.97); Red Cell Distribution Width 17.2 % (11.5-14.5); Segmented Neutrophils % 46.4 %; White Blood Count 4.8 K/mcL (4.3-11.1)
[2020-06-16 23:40] LABS: Prothrombin Time 11.7 Seconds (9.4-12.1)
[2020-06-16 23:42] LABS: Activated Partial Thrombo Time 32.5 Seconds (26.0-36.0)
[2020-06-16 23:46] LABS: Alanine Aminotransferase 47 Units/L (7-52); Albumin 3.6 g/dL (3.5-5.7); Albumin/Globulin Ratio 1.2 (1.1-2.2); Alkaline Phosphatase 47 Units/L (34-104); Aspartate Amino Transferase 47 Units/L (13-39); BUN/Creatinine Ratio 24 (6-26); Bilirubin,Indirect 0.3 mg/dL (0.0-1.0); Bilirubin,Total 0.3 mg/dL (0.3-1.0); Blood Urea Nitrogen 12 mg/dL (8-23); Calcium 9.3 mg/dL (8.6-10.3); Carbon Dioxide 27 mEq/L (23-29); Chloride 108 mEq/L (98-107); Glucose 97 mg/dL (70-105); Lipase 37 Units/L (11-82); Magnesium 1.8 mg/dL (1.6-2.6); Osmolality,Calculated 298 (280-300); Phosphorous 3.2 mg/dL (2.7-4.5); Potassium 3.6 mEq/L (3.5-5.1); Sodium 144 mEq/L (136-145); Total Protein 6.6 g/dL (6.4-8.9); Troponin I < 0.03 ng/mL (< 0.04); eGFR For African Americans > 60 (> 60); eGFR For Non-African Americans > 60 (> 60)
[2020-06-17] MEDS ORDERED: Vancomycin 1,250 MG/262.5 ML IV.SOLN IVPB ONE (00:45)
[2020-06-17] MEDS ORDERED: 0.9 % Sodium Chloride 1,000 ML IVC ONE (00:45)
[2020-06-17] MEDS ORDERED: Piperacillin/Tazobactam 3.375 GM in 0.9 % Sodium Chloride Mini Bag 100 ML IVPB ONE (00:46)
[2020-06-17 01:03] LABS: Adenovirus Not Detected (Not Detect); Bordetella Pertussis Not Detected (Not Detect); Chlamydophila pneumoniae Not Detected (Not Detect); Coronavirus 229E Not Detected (Not Detect); Coronavirus HKU1 Not Detected (Not Detect); Coronavirus NL63 Not Detected (Not Detect); Coronavirus OC43 Not Detected (Not Detect); Human Metapneumovirus Not Detected (Not Detect); Human Rhinovirus/Enterovirus Not Detected (Not Detect); Influenza A Subtype 2009 H1 Not Detected (Not Detect); Influenza B Not Detected (Not Detect); Mycoplasma pneumoniae Not Detected (Not Detect); Parainfluenza Virus 1 Not Detected (Not Detect); Parainfluenza Virus 2 Not Detected (Not Detect); Parainfluenza Virus 3 Not Detected (Not Detect); Parainfluenza Virus 4 Not Detected (Not Detect); Respiratory Syncytial Virus Not Detected (Not Detect); SARS-CoV-2 Not Detected (Not Detect)
[2020-06-17 01:22] LABS: Bilirubin,Urine Negative (Negative); Blood,Urine Negative (Negative); Clarity,Urine Clear (Clear); Color,Urine Colorless (Yellow); Glucose,Urine (UA) Normal (Normal); Ketones,Urine Negative (Negative); Leukocyte Esterase,Urine Negative (Negative); Nitrite,Urine Negative (Negative); PH,Urine 6.5 pH Units (5.0-8.0); Protein,Urine Negative (Neg-Trace); Specific Gravity,Urine 1.007 (1.010-1.025); Urobilinogen,Urine Normal (Normal)
[2020-06-17 03:35] LABS: VBG HCO3 28 mEq/L (21-27); VBG PCO2 41 mmHg (41-51); VBG PH 7.44 pH Units (7.32-7.42); VBG PO2 155 mmHg (25-50)
[2020-06-17] MEDS ORDERED: Naloxone 0.4 MG/ML INJ IVP PRN (05:13)
[2020-06-17] MEDS ORDERED: Acetaminophen 325 MG TABLET PO PRN (05:13)
[2020-06-17] MEDS ORDERED: 0.9 % Sodium Chloride 1,000 ML IVC SCH ×2 (05:15→09:32)
[2020-06-17 07:18] LABS: Basophils % 0.2 %; Eosinophils # 0.1 K/mcL (0.0-0.6); Eosinophils % 1.4 %; Hemoglobin 8.8 g/dL (11.5-15.4); Immature Granulocytes % 0.4 % (0-4); Lymphocytes # 2.3 K/mcL (0.6-4.6); Lymphocytes % 39.9 %; Mean Corpuscular HGB Conc 31.4 g/dL (31.6-35.5); Mean Corpuscular Hemoglobin 28.1 pg (28.0-33.3); Mean Corpuscular Volume 89.5 fL (83.0-100.0); Mean Platelet Volume 11.6 fL (9.4-12.4); Monocytes # 0.7 K/mcL (0.0-1.3); Monocytes % 12.2 %; Neutrophils # 2.6 K/mcL (1.6-8.9); Platelet Count 176 K/mcL (140-400); Red Blood Count 3.13 M/mcL (3.82-4.97); Red Cell Distribution Width 17.1 % (11.5-14.5); Segmented Neutrophils % 45.9 %; White Blood Count 5.7 K/mcL (4.3-11.1)
[2020-06-17 07:36] LABS: BUN/Creatinine Ratio 16 (6-26); Blood Urea Nitrogen 10 mg/dL (8-23); Calcium 8.8 mg/dL (8.6-10.3); Carbon Dioxide 27 mEq/L (23-29); Chloride 113 mEq/L (98-107); Glucose 71 mg/dL (70-105); Osmolality,Calculated 302 (280-300); Potassium 3.7 mEq/L (3.5-5.1); Sodium 147 mEq/L (136-145); eGFR For African Americans > 60 (> 60); eGFR For Non-African Americans > 60 (> 60)
[2020-06-17 09:20] LABS: C-Reactive Protein 8 mg/L (Less than 10)
[2020-06-17 10:19] LABS: Troponin I < 0.03 ng/mL (< 0.04)
[2020-06-17] MEDS ORDERED: Haloperidol Lactate 5 MG/ML VIAL IVP ONE (10:30)
[2020-06-17] MEDS: Piperacillin/Tazobactam 3.375 GM in 0.9 % Sodium Chloride Mini Bag 100 ML IVPB SCH ×2 (10:57→17:16)
[2020-06-17] MEDS ORDERED: Haloperidol Lactate 5 MG/ML VIAL IVP PRN (11:02)
[2020-06-17] MEDS ORDERED: *HR* LORazepam 2 MG/ML VIAL IVP ONE (16:45)
[2020-06-17] MEDS: *HR* Heparin 5,000 UNIT/ML VIAL SQ SCH (17:16)
[2020-06-17] MEDS: 0.9 % Sodium Chloride 1,000 ML IVC SCH (17:16)
[2020-06-18] MEDS: Piperacillin/Tazobactam 3.375 GM in 0.9 % Sodium Chloride Mini Bag 100 ML IVPB SCH ×3 (03:06→20:09)
[2020-06-18] MEDS: 0.9 % Sodium Chloride 1,000 ML IVC SCH (03:07)
[2020-06-18] MEDS: *HR* Heparin 5,000 UNIT/ML VIAL SQ SCH ×2 (05:36→17:29)
[2020-06-18 06:08] LABS: Basophils % 0.3 %; Eosinophils # 0.1 K/mcL (0.0-0.6); Eosinophils % 2.1 %; Hemoglobin 8.7 g/dL (11.5-15.4); Immature Granulocytes % 0.3 % (0-4); Lymphocytes # 1.5 K/mcL (0.6-4.6); Lymphocytes % 45.6 %; Mean Corpuscular HGB Conc 31.1 g/dL (31.6-35.5); Mean Corpuscular Hemoglobin 27.2 pg (28.0-33.3); Mean Corpuscular Volume 87.5 fL (83.0-100.0); Mean Platelet Volume 10.8 fL (9.4-12.4); Monocytes # 0.5 K/mcL (0.0-1.3); Monocytes % 15.4 %; Neutrophils # 1.2 K/mcL (1.6-8.9); Platelet Count 172 K/mcL (140-400); Red Cell Distribution Width 16.9 % (11.5-14.5); Segmented Neutrophils % 36.3 %; White Blood Count 3.4 K/mcL (4.3-11.1)
[2020-06-18 06:34] LABS: BUN/Creatinine Ratio 8 (6-26); Blood Urea Nitrogen 5 mg/dL (8-23); Calcium 8.8 mg/dL (8.6-10.3); Carbon Dioxide 25 mEq/L (23-29); Chloride 109 mEq/L (98-107); Glucose 67 mg/dL (70-105); Magnesium 1.7 mg/dL (1.6-2.6); Osmolality,Calculated 294 (280-300); Phosphorous 2.9 mg/dL (2.7-4.5); Potassium 3.1 mEq/L (3.5-5.1); Sodium 144 mEq/L (136-145); eGFR For African Americans > 60 (> 60); eGFR For Non-African Americans > 60 (> 60)
[2020-06-18] MEDS ORDERED: Potassium Chloride 40 MEQ, Lidocaine 1% 2 ML in 0.9 % Sodium Chloride 500 ML IVPB ONE (07:14)
[2020-06-18] MEDS: Cholecalciferol (D-3) 1,000 UNIT (25MCG) TABLET PO SCH (11:31)
[2020-06-18] MEDS: clonazePAM 1 MG TABLET PO SCH ×2 (14:07→20:10)
[2020-06-18] MEDS ORDERED: QUEtiapine Fumarate 100 MG TABLET PO ONE (17:21)
[2020-06-18] MEDS ORDERED: *HR* LORazepam 2 MG/ML VIAL IVP PRN (18:08)
[2020-06-18] MEDS: polyethylene glycoL 3350 17 GM POWD.PACK PO SCH (20:10)
[2020-06-18] MEDS ORDERED: QUEtiapine Fumarate 100 MG TABLET PO SCH (21:00)
[2020-06-19] MEDS: Piperacillin/Tazobactam 3.375 GM in 0.9 % Sodium Chloride Mini Bag 100 ML IVPB SCH ×2 (01:21→11:18)
[2020-06-19] MEDS: *HR* Heparin 5,000 UNIT/ML VIAL SQ SCH (05:17)
[2020-06-19 06:52] LABS: Basophils % 0.3 %; Eosinophils # 0.1 K/mcL (0.0-0.6); Eosinophils % 1.7 %; Hematocrit 27.8 % (35.3-44.9); Hemoglobin 8.6 g/dL (11.5-15.4); Immature Granulocytes % 0.3 % (0-4); Lymphocytes # 2.1 K/mcL (0.6-4.6); Lymphocytes % 58.4 %; Mean Corpuscular HGB Conc 30.9 g/dL (31.6-35.5); Mean Corpuscular Hemoglobin 27.3 pg (28.0-33.3); Mean Corpuscular Volume 88.3 fL (83.0-100.0); Monocytes # 0.5 K/mcL (0.0-1.3); Monocytes % 14.3 %; Neutrophils # 0.9 K/mcL (1.6-8.9); Platelet Count 173 K/mcL (140-400); Red Blood Count 3.15 M/mcL (3.82-4.97); Red Cell Distribution Width 17.3 % (11.5-14.5); White Blood Count 3.6 K/mcL (4.3-11.1)
[2020-06-19 07:19] LABS: BUN/Creatinine Ratio 9 (6-26); Blood Urea Nitrogen 6 mg/dL (8-23); Calcium 9.3 mg/dL (8.6-10.3); Carbon Dioxide 24 mEq/L (23-29); Chloride 114 mEq/L (98-107); Glucose 65 mg/dL (70-105); Osmolality,Calculated 298 (280-300); Potassium 3.5 mEq/L (3.5-5.1); Sodium 146 mEq/L (136-145); eGFR For African Americans > 60 (> 60); eGFR For Non-African Americans > 60 (> 60)
[2020-06-19] MEDS ORDERED: Dextrose Gel 15 GM/37.5 ML TUBE PO PRN ×2 (07:33)
[2020-06-19] MEDS ORDERED: *HR* Dextrose 50 % in Water (Vial) 50 ML VIAL IVP PRN (07:33)
[2020-06-19] MEDS ORDERED: D5% in Water 1,000 ML IVC PRN (07:33)
[2020-06-19] MEDS ORDERED: Cosyntropin 250 MCG/2 ML VIAL IVP ONE (07:34)
[2020-06-19] MEDS ORDERED: (Plecanatide [Trulance] 3 MG) PO SCH (09:00)
[2020-06-19] MEDS: polyethylene glycoL 3350 17 GM POWD.PACK PO SCH (11:08)
[2020-06-19] MEDS: Cholecalciferol (D-3) 1,000 UNIT (25MCG) TABLET PO SCH (11:08)
[2020-06-19] MEDS: clonazePAM 1 MG TABLET PO SCH (11:08)
[2020-06-19 14:19] VITALS: BP 102/65
[2020-06-19] MEDS ORDERED: FLU Vac QV 20-21 (6Month+)/PF 0.5 ML SYRINGE IM ONE (14:41)
== END 2020-06-19 16:04 | disposition hospice, home (50) | DRG 640 ==
LOC: EMEROOARM 22:20 → CDU 22:20 → SUATTDRO 06-17 01:24 → CDU 06-17 03:37 → 3ANU 06-17 16:33
PROVIDERS: ADMIT Student in an Organized Health Care Education/Training Program; ATTEND Family Medicine